=== PATIENT | male | born 1950 | race Caucasian/White ===

== ENCOUNTER 2017-08-08 07:30 | Day surgery (SDC) | payer MEDICARE, OTHER ==
[~2017-08-08] VITALS: Ht 182.9 cm; Wt 88.5 kg
[~2017-08-08 07:30] MED LIST: ALPR PO; ATEN50TA PO; ETAN50IN SC; FENO5TAB PO; IBUP800T24 PO; OLME40TA30 PO; OMEP20TA PO; OXYC325T14 PO; PRE5T PO; SERT-135 PO
[2017-08-08] MEDS ORDERED: IODIXANOL 320MG/ML 100ML BTL IV ONE (09:02)
[2017-08-08] MEDS ORDERED: LIDOCAINE 2%HCL (LOCAL ANESTH.) INJ 20ML MDV ONE (09:02)
[2017-08-08] MEDS ORDERED: HEPARIN IN NS 1000Units/500mL 1,500 ML ONE (09:03)
[2017-08-08] MEDS ORDERED: MIDAZOLAM HCL 1MG/1ML-2 ML VIAL ONE (09:16)
[2017-08-08] MEDS ORDERED: ONDANSETRON HCL 4 MG/2 ML VIAL ONE (09:16)
[2017-08-08] MEDS ORDERED: fentaNYL CITRATE 100 MCG/2 ML VL ONE (09:16)
[2017-08-08] MEDS ORDERED: ANGIOMAX 250 MG VIAL IV ONE (09:16)
[2017-08-08] MEDS ORDERED: SODIUM CHL 0.9% 0 ML ONE (09:16)
[2017-08-08] MEDS ORDERED: hydrALAZINE HCL 20 MG/ML VL IV ONE ×2 (10:45→13:15)
[2017-08-08] MEDS ORDERED: hydrALAZINE HCL 20 MG/ML VL ONE (13:06)
== END 2017-08-08 14:05 | disposition home or self-care (01) ==
LOC: CATH 07:30
PROVIDERS: ATTEND Internal Medicine
DX: I49.8 Other specified cardiac arrhythmias (principal); R94.39 Abnormal result of other cardiovascular function study; E66.9 Obesity, unspecified; F17.210 Nicotine dependence, cigarettes, uncomplicated; I99.8 Other disorder of circulatory system; M06.9 Rheumatoid arthritis, unspecified; Z79.899 Other long term (current) drug therapy; Z79.01 Long term (current) use of anticoagulants; Z79.1 Long term (current) use of non-steroidal anti-inflammatories (NSAID); Z79.891 Long term (current) use of opiate analgesic
CPT/HCPCS: 93458; C1894; J0360; J1644; J2250; J2405; J3010; J7030; Q9967; 99152

== ENCOUNTER 2018-07-26 17:26 | Inpatient (IN) | payer OTHER ==
[~2018-07-26] VITALS: Ht 167.6 cm; Wt 104.1 kg
[~2018-07-26 17:26] MED LIST changes: -ALPR PO; +ALPR0.255 PO
[2018-07-26] MEDS ORDERED: MIDAZOLAM HCL 5 MG/ML-1ML VIAL ONE (17:37)
[2018-07-26] MEDS ORDERED: PROPOFOL 100 ML IV ONE (17:39)
[2018-07-26] MEDS: PROPOFOL 100 ML IV SCH (17:42)
[2018-07-26] MEDS ORDERED: NOREPINEPHRINE 8 MG/250ML KIT 250 ML IV ONE (17:57)
[2018-07-26 18:05] LABS: Eosinophils # (auto) 0 uL; Hemoglobin 13.5 g/dL (13.5-17.5); Lymphocytes # (auto) 1.3 uL
[2018-07-26 18:06] LABS: Basophils # (auto) 0 uL; Basophils % (auto) 0.1 % (0.0-2.0); Eosinophils % (auto) 0.1 % (0.0-7.0); Lymphocytes % (auto) 8.2 % (10.0-50.0); Monocytes # (auto) 1.4 uL; Monocytes % (auto) 8.8 % (0.0-12.0); Neutrophils % (auto) 82.8 % (37.0-80.0); Platelet Count (auto) 283 10^3/uL (140-450); Red Blood Cells 5.63 10^6/uL (4.5-5.90); Red Cell Distribution Width 18.5 % (11.8-14.3); White Blood Cell 15.7 10^3/uL (4.4-10.8)
[2018-07-26] MEDS: NOREPINEPHRINE 8 MG/250ML KIT 250 ML IV SCH (18:12)
[2018-07-26 18:14] LABS: Chloride 119 mmol/L (98-107); Potassium 3.2 mmol/L (3.5-5.1); Sodium 147 mmol/L (136-145)
[2018-07-26 18:17] LABS: Albumin 1.7 g/dL (3.4-5.0); Anion Gap 14 (5-15); Carbon Dioxide 14 mmol/L (21-32); Glucose 81 mg/dL (74-106); Magnesium 1.5 mg/dL (1.6-2.6)
[2018-07-26 18:21] LABS: Alanine Aminotransferase 155 U/L (16-61); Aspartate Aminotransferase 40 U/L (15-37); BUN/Creatinine Ratio 38.1; Bilirubin, Total 0.6 mg/dL (0.2-1.0); GFR African American 32 mL/min; GFR Non-African American 26 mL/min; Total Protein 3.7 g/dL (6.4-8.2)
[2018-07-26 18:23] LABS: Alkaline Phosphatase 87 U/L (45-117)
[2018-07-26] MEDS ORDERED: MIDAZOLAM HCL 5 MG/ML-1ML VIAL IV ONE (18:30)
[2018-07-26 18:42] LABS: INR 1.39 (0.9-1.15); Prothrombin Time 14.6 sec (9.27-12.13)
[2018-07-26] MEDS ORDERED: SODIUM CHLORIDE 0.9% 1,000 ML IV ONE (18:45)
[2018-07-26] MEDS ORDERED: DOPamine 1600MCG/ML D5W 250 ML IV ONE (18:45)
--- NOTE | 2018-07-26 19:25 | NUR ---
Respiratory note: INCREASED VT TO 600 PER MD ORDER AT THIS TIME
[2018-07-26] MEDS ORDERED: CALCIUM GLUC 4.65meq/50ml D5AE 50 ML IV ONE ×2 (19:30→23:00)
[2018-07-26 19:31] LABS: Blood Urea Nitrogen 99 mg/dL (7-18); Calcium < 5.0 mg/dL (8.5-10.1)
[2018-07-26 19:53] VITALS: BP 106/58
--- NOTE | 2018-07-26 20:15 | NUR ---
Respiratory note: TOOK PT TO CT AND RETURNED AT THIS TIME, NO COMPLICATIONS, PLACED PT BACK ON VENT AT THIS TIME WITH THE ORIGINAL SETTINGS AC 14 VT 600 PEEP 5 FOP2 IS 100%
[2018-07-26] MEDS: MIDAZOLAM DRIP 50 mg/50mL 50 ML IV SCH (20:40)
[2018-07-26 21:00] VITALS: BP 106/58
[2018-07-26] MEDS ORDERED: SODIUM CHLORIDE 0.9% 1,000 ML IV SCH (21:37)
[2018-07-26] MEDS ORDERED: VANCOMYCIN PER PHARMACY 0 MG IV SCH (21:45)
[2018-07-26] MEDS ORDERED: ONDANSETRON HCL 4 MG/2 ML VIAL IV PRN (21:45)
[2018-07-26] MEDS ORDERED: MORPHINE SULF INJ 2 MG/ML SYRINGE 1ML IV PRN (21:45)
[2018-07-26] MEDS ORDERED: NITROGLYCERIN 0.4 MG SL TAB SL PRN (21:45)
[2018-07-26] MEDS ORDERED: ACETAMINOPHEN 325 MG TAB PO PRN (21:45)
[2018-07-26] MEDS ORDERED: POTASSIUM CHL 20MEQ/100ML 100 ML IV ONE (21:45)
--- NOTE | 2018-07-26 21:47 | NUR ---
Respiratory note: INCREASED RR TO 16, INCREASED PF TO 65LPM AT THIS TIME
[2018-07-26] MEDS ORDERED: SODIUM BICARBONATE 8.4 % INJ 50ML VIAL IV ONE (22:00)
[2018-07-26 22:02] VITALS: BP 136/88
[2018-07-26] MEDS ORDERED: VANCOMYCIN 1GM/250ML 250 ML IV ONE (22:15)
--- NOTE | 2018-07-26 23:23 | NUR ---
Admit to ICU from ER on vent LYNN,NATALIE Granado admitted to ICU via gurney on manager monitoring, intubated and being bagged by Respiratory Therapist. Patient transferred to bed, connected to mechanical ventilator by therapist, SYLVIA at bedside. Patient connected to ICU monitoring, weighed by bed scale, oriented to Olivia pena RN, unit, ventilator and sedation. NOTE: Family at ICU waiting area
[2018-07-26 23:30] VITALS: BP 83/58
[2018-07-26 23:45] VITALS: BP 105/76
[2018-07-27] VITALS (95 sets, daily range): BP systolic 76–127; BP diastolic 40–86
[2018-07-27] MEDS ORDERED: PIPERACILLIN-TAZOB 3.375GM 100 ML IV SCH
--- NOTE | 2018-07-27 00:05 | NUR ---
FAMILY AT BEDSIDE TALKED TO PATIENT'S AND SON INFORMED THEM OF PATIENT'S CONDITION, UNIT'S POLICIES VERBALIZED UNDERSTANDING
--- NOTE | 2018-07-27 00:30 | NUR ---
SKIN PATIENT HAS MULTIPLE SKIN TEARS,ABRASIONS ACCORDING TO THE PATIENT FELL AND HIS SKIN IS PAPERY THIN AND EASILY GETS BRUISES BOTH LEGS - HYPERPIGMENTED AND SWOLLEN
[2018-07-27] MEDS ORDERED: DOPamine 1600MCG/ML D5W 250 ML IV ONE (00:58)
[2018-07-27] MEDS: NOREPINEPHRINE 8 MG/250ML KIT 250 ML IV SCH ×3 (01:09→22:33)
[2018-07-27] MEDS: MIDAZOLAM DRIP 50 mg/50mL 50 ML IV SCH ×4 (01:27→18:24)
--- NOTE | 2018-07-27 01:49 | NUR ---
VANCOMYCIN VANCOMYCIN WAS GIVEN LATE AT 0114HRS WILL CANCEL VANCOMYCIN RANDOM LEVEL DRAW AT 0400HRS BECAUSE ITS TOO CLOSE WILL CALL PHARMACY LATER TO RE-TIMED THE DRAW
[2018-07-27] MEDS: DOPamine 1600MCG/ML D5W 250 ML IV SCH ×4 (02:14→16:39)
[2018-07-27] MEDS: PIPERACILLIN-TAZOB 2.25GM 50 ML IV SCH ×2 (02:29→07:34)
[2018-07-27] MEDS ORDERED: SODIUM BICARBONATE 50ML VIAL 50 ML in SOD CHL 0.45% 1,000 ML IV SCH (02:30)
--- NOTE | 2018-07-27 02:30 | NUR ---
HOSPITALIST CALLED BACK TALKED TO MARSHAL MORGAN TO FOLLOW UP THE ORDER FOR SODIUM BICARBONATE DRIP TELEPHONE ORDER RECEIVED AND VERIFIED: IV 1/2 NS + 1 AMP OF SODIUM BICARBONATE AT 75ML/HR AND DO ABG AFTER 2HOURS OF DRIP WAS STARTED
[2018-07-27] MEDS ORDERED: SODIUM BICARBONATE 8.4% INJ 50ML SYRINGE ONE (03:15)
[2018-07-27] MEDS ORDERED: ATEN50TA PO ×2 (03:42)
[2018-07-27] MEDS ORDERED: PRE5T PO (03:54)
[2018-07-27] MEDS ORDERED: TRAZ-220 PO (04:04)
[2018-07-27] MEDS ORDERED: DOCU100T15 PO (04:04)
[2018-07-27] MEDS ORDERED: ALBU1AER4 IN (04:04)
[2018-07-27] MEDS ORDERED: MENA1CAP PO (04:04)
[2018-07-27] MEDS ORDERED: TRAM50TA2 PO (04:04)
[2018-07-27] MEDS ORDERED: ASPI81TA27 PO (04:04)
--- NOTE | 2018-07-27 05:55 | NUR ---
HYGIENE SPONGE BATH DONE ORAL CARE DONE
[2018-07-27 06:18] LABS: Basophils # (auto) 0.1 uL; Basophils % (auto) 0.3 % (0.0-2.0); Eosinophils # (auto) 0 uL; Eosinophils % (auto) 0.2 % (0.0-7.0); Hematocrit 41.7 % (41.0-53.0); Hemoglobin 13.4 g/dL (13.5-17.5); Lymphocytes # (auto) 0.5 uL; Lymphocytes % (auto) 2.3 % (10.0-50.0); Mean Corpuscular Hemoglobin 24.7 pg (28.0-32.0); Mean Corpuscular Volume 77.1 fL (80.0-100.0); Monocytes % (auto) 4.8 % (0.0-12.0); Neutrophils # (auto) 18.6 uL; Neutrophils % (auto) 92.4 % (37.0-80.0); Nucleated Red Blood Cells % 2.1 %; Platelet Count (auto) 257 10^3/uL (140-450); Red Blood Cells 5.41 10^6/uL (4.5-5.90); Red Cell Distribution Width 18.5 % (11.8-14.3); White Blood Cell 20.1 10^3/uL (4.4-10.8)
--- NOTE | 2018-07-27 06:21 | NUR ---
Admit to ICU from ER on vent NATALIE BAILEY admitted to ICU via [place] on secured entrance monitor, intubated and being bagged by Respiratory Therapist. Patient transferred to bed, connected to mechanical ventilator by therapist, SYLVIA at bedside. Patient connected to ICU monitoring, weighed by bed scale, oriented to Olivia pena RN, unit, ventilator and sedation. NOTE: Family at ICU waiting area Addendum: 07/27/18 at 0624 by Olivia Marrero RN WRONG ENTRY ENTRY FOR 2323HRS 07/26
[2018-07-27 06:37] LABS: Potassium 4.8 mmol/L (3.5-5.1)
--- NOTE | 2018-07-27 06:44 | NUR ---
CALLED PHARMACY INFORMED PHARMACIST ON DUTY THAT VANCOMYCIN RANDOM DUE AT 0400HRS NOT DONE BECAUSE SARA VANCOMYCIN DOSE WAS GIVEN LATE. SHE NOTED SHE WILL PUT IN THE ORDER FOR VANCOMYCIN DRAW
[2018-07-27 06:52] LABS: Albumin 2.8 g/dL (3.4-5.0); BUN/Creatinine Ratio 34.8; Bilirubin, Total 1.5 mg/dL (0.2-1.0); Total Protein 6.3 g/dL (6.4-8.2)
[2018-07-27 06:55] LABS: Calcium 5.4 mg/dL (8.5-10.1)
--- NOTE | 2018-07-27 07:00 | NUR ---
REPORT RECEIVED FROM SUPERVISOR COKE HANDLING NURSE. PATIENT RESTING IN BED AT THIS TIME, INTUBATED AND SEDATED. RESPIRATIONS EVEN AND UNLABORED. NO SIGNS OF ACUTE DISTRESS NOTED. CALL LIGHT IN REACH, BED IN LOW POSITION. WILL CONTINUE TO MONITOR.
--- NOTE | 2018-07-27 07:10 | NUR ---
REPORT REPORT GIVEN TO REAL VALERIO
[2018-07-27] MEDS ORDERED: CALCIUM GLUC 4.65meq/50ml D5AE 50 ML IV ONE ×4 (07:30→22:15)
[2018-07-27] MEDS ORDERED: SODIUM BICARBONATE 8.4 % INJ 50ML VIAL IV ONE (07:30)
--- NOTE | 2018-07-27 07:32 | NUR ---
HOSPITALIST CALLED BACK INFORMED WAITER/WAITRESS CAFETERIA MORGAN OF ABG AND LAB RESULTS TELEPHONE ORDER RECEIVED AND VERIFIED
--- NOTE | 2018-07-27 08:00 | NUR ---
UPON ASSESSMENT UNABLE TO AUSCULTATE NGT. GARGLING HEARD UPON AUSCULTATION. AWAITING CXR RESULTS TO CONFIRM.
[2018-07-27] MEDS: ASPirin 81 mg TAB PO SCH (09:37)
[2018-07-27] MEDS ORDERED: PANTOPRAZOLE 40 MG/10 ML VIAL IV SCH (10:00)
--- NOTE | 2018-07-27 10:00 | NUR ---
REPLACED RIGHT NGT WITH 16F OGT. CXR STATED NGT IN PLACE, BUT STILL UNABLE TO AUSCULTATE AND GARGLING NOTED COMING FROM MOUTH, DOUBLE NURSE VERIFIED. INSERTED WITHOUT DIFFICULTY. VERIFIED WITH AUSCULTATION.
[2018-07-27] MEDS ORDERED: EPINEPHrine HCL 1 MG/10 ML SYRG IV ONE (10:09)
[2018-07-27] MEDS ORDERED: DOPamine 1600mCg/ml 400MG/250ml NSorD5 KIT/BAG IV ONE (10:09)
[2018-07-27] MEDS ORDERED: ATROPINE SULF 1 MG/10ml SYR IV ONE (10:09)
--- NOTE | 2018-07-27 10:15 | NUR ---
DR ESQUEDA AT BEDSIDE TO ASSESS PATIENT AND DISCUSS PLAN OF CARE. PER MD HAVE DIALYSIS CATHETER PLACED AND START DIALYSIS TODAY. EVERYTHING DISCUSSED WITH SON AT BEDSIDE.
[2018-07-27] MEDS ORDERED: LINEZOLID 600MG/300ML 300 ML IV ONE (10:30)
--- NOTE | 2018-07-27 10:30 | NUR ---
MD CALLED AND WAITING FOR MD TO CALL BACK REGARDING CRITICAL ABG RESULTS
--- NOTE | 2018-07-27 10:41 | NUR ---
PAGED DR CHAUDHARI TO CLARIFY CONSULTATION MD PREFERRED PER INSURANCE. AWAITING CALL BACK.
--- NOTE | 2018-07-27 10:50 | NUR ---
SPOKE TO DR CHAUDHARI, PER MD PATIENT TO BE SEEN BY DR HAY FOR CARDIO AND DR PHIPPS FOR PULMONARY.
--- NOTE | 2018-07-27 11:10 | NUR ---
DR CHAUDHARI SPOKE TO DR MCCALL AND PATIENT WILL BE SEEN TODAY BE EITHER HIMSELF OR DR FERNANDES.
--- NOTE | 2018-07-27 11:39 | NUR ---
DR CHAUDHARI AT BEDSIDE TO ASSESS PATIENT AND DISCUSS PLAN OF CARE. PER MD START PATIENT ON NYSTATIN. PER MD CHANGE BICARB DRIP TO DEXTROSE 5%WITH 2 AMPS OF BICARB AT 125ML/HR. ALL ORDERS NOTED IN CHART.
[2018-07-27 13:18] LABS: Potassium 4.2 mmol/L (3.5-5.1)
[2018-07-27 13:24] LABS: Albumin 2.7 g/dL (3.4-5.0)
[2018-07-27 13:27] LABS: BUN/Creatinine Ratio 37.7
[2018-07-27 13:30] LABS: Bilirubin, Total 1.6 mg/dL (0.2-1.0); Total Protein 6.5 g/dL (6.4-8.2)
[2018-07-27 13:47] LABS: Calcium 5.8 mg/dL (8.5-10.1)
[2018-07-27] MEDS: MEROPENEM 500MG IVPB 50 ML IV SCH (13:50)
--- NOTE | 2018-07-27 14:00 | NUR ---
WOUND CARE NURSE AT BEDSIDE TO ASSESS PATIENT.
--- NOTE | 2018-07-27 14:00 | NUR ---
WOUND CARE NOTE: IN TO SEE PATIENT AT THIS TIME PER WOUND CARE CONSULT REQUEST. PATIENT NOTED UPON ADMIT TO HAVE MULTIPLE WOUNDS. ALL WOUNDS PHOTOGRAPHED AT THAT TIME BY BEDSIDE NURSE FOR REFERENCE. PATIENT ADMITTED TO [facility] WITH DIAGNOSIS OF CARDIOPULMONARY ARREST. PATIENT CURRENTLY IN ICU. HE IS INTUBATED, SEDATED, ON MULTIPLE DRIPS. PATIENT CAME IN WITH A STAGE 3 PRESSURE ULCER TO THE LEFT BUTTOCK, MULTIPLE ABRASIONS/SKIN TEARS AND ECCHYMOTIC WOUNDS TO LIMBS/TRUNK. ALL WOUND STATS CAN BE FOUND WITHIN WOUND ASSESSMENT INTERVENTION LINKED WITH THIS NOTE. THERAHONEY AND OPTIFOAM GENTLE DRESSINGS APPLIED TO ALL OPEN WOUNDS. OPTIFOAM GENTLE SACRAL DRESSING APPLIED TO MEDIAL SACRUM. PATIENT WOULD BENEFIT FROM: FREQUENT TURN SCHEDULES Q 2 HOURS, PRN CONDITION PERMITS, WITH PRESSURE REDISTRIBUTION USING PILLOWS/WEDGES, SPECIALTY AIR BED, DAILY/PRN DRESSING CHANGE TO LEFT BUTTOCK WOUND, Q 3 DAY/PRN DRESSING CHANGE TO ALL SKIN TEARS/ABRASIONS THAT ARE OPEN; BID/PRN APPLICATION WITH MOISTURE BARRIER CREAM/OPTIFOAM GENTLE SACRAL DRESSING PREVENTATIVE, DIETARY CONSULT FOR WOUNDS, SKIN/WOUND CARE PLAN, CONTINUED MONITORING BY WOUND CARE TEAM. Addendum: 07/27/18 at 8 by Zahraa Montgomery RN Amended: Links added.
--- NOTE | 2018-07-27 14:20 | NUR ---
MEDICAL RECORDS COORDINATOR AT BEDSIDE
[2018-07-27] MEDS ORDERED: SODIUM BICARB 50ML SYR 100 ML in D5W 5% 1,000 ML IV ONE (14:45)
--- NOTE | 2018-07-27 14:45 | NUR ---
DR CALDWELL AT BEDSIDE TO PLACE DIALYSIS CATHETER.
[2018-07-27] MEDS ORDERED: HEPARIN SODIUM (PORCINE) 5000 UNITS/ML 1ML VIAL ONE (15:06)
[2018-07-27] MEDS ORDERED: HEPARIN 1,000 UNITS/ml 1ML VIAL ONE ×2 (15:10→16:47)
--- NOTE | 2018-07-27 16:25 | NUR ---
DIALYSIS NURSE AT BEDSIDE. TO START DIALYSIS.
[2018-07-27] MEDS: PROPOFOL 100 ML IV SCH (16:39)
--- NOTE | 2018-07-27 16:55 | NUR ---
DR FERNANDES AT BEDSIDE TO ASSESS PATIENT AND DISCUSS PLAN OF CARE. PER MD YEMI CHOUDHURY.
--- NOTE | 2018-07-27 16:55 | NUR ---
RHYTHM CHANGE DR FERNANDES AT BEDSIDE WELL DIALYSIS NURSE, AND PRIMARY NURSE WHEN PATIENT WENT INTO A FIB RVR IN THE 170'S. EKG WAS PERFORMED. PAGED DR MONAHAN AND DR CHAUDHARI. 1703 [address] CHAUDHARI CALLED BACK AND STARTED PATIENT ON AMIODARONE DRIP PER PROTOCOL AND HEPARIN DRIP PER PROTOCOL.
[2018-07-27] MEDS: VASOPRESSIN 50 UNITS in D5W 5% 247.5 ML IV SCH ×2 (17:15→19:52)
[2018-07-27] MEDS ORDERED: AMIODARONE HCL 150 MG in D5W 5% 100 ML IV ONE (17:15)
[2018-07-27] MEDS ORDERED: CATHFLO ACTIVASE (ALTEPLASE) 2 MG VIAL IV ONE (17:15)
[2018-07-27] MEDS ORDERED: AMIODARONE HCL 900 MG in DEXTROSE 500 ML IV SCH (17:16)
[2018-07-27] MEDS ORDERED: HEPARIN SODIUM (PORCINE) 5000 UNITS/ML 1ML VIAL IV ONE (17:45)
[2018-07-27] MEDS ORDERED: HEPARIN DRIP/D5W 100UNITS/ML 250 ML IV SCH (17:46)
[2018-07-27 17:49] LABS: Hemoglobin 14.3 g/dL (13.5-17.5); Monocytes # (auto) 0.8 uL
[2018-07-27 17:50] LABS: Basophils # (auto) 0.3 uL; Basophils % (auto) 1.1 % (0.0-2.0); Eosinophils # (auto) 0 uL; Eosinophils % (auto) 0.2 % (0.0-7.0); Hematocrit 45.7 % (41.0-53.0); INR 1.37 (0.9-1.15); Lymphocytes # (auto) 0.9 uL; Lymphocytes % (auto) 3.8 % (10.0-50.0); Mean Corpuscular Hemoglobin 24.1 pg (28.0-32.0); Mean Corpuscular Hgb Conc. 31.3 g/dL (32.0-36.0); Monocytes % (auto) 3.4 % (0.0-12.0); Neutrophils # (auto) 21.8 uL; Neutrophils % (auto) 91.5 % (37.0-80.0); Nucleated Red Blood Cells % 1.7 %; Partial Thromboplastin Time 36.3 sec (23.78-33.04); Platelet Count (auto) 238 10^3/uL (140-450); Prothrombin Time 14.4 sec (9.27-12.13); Red Blood Cells 5.93 10^6/uL (4.5-5.90); Red Cell Distribution Width 18.6 % (11.8-14.3); White Blood Cell 23.8 10^3/uL (4.4-10.8)
[2018-07-27 18:56] LABS: Creatinine, Urine 60 mg/dL (30.0-125.0); Sodium Urine 19 mmol/L (40-220)
[2018-07-27 19:05] LABS: Urine Bacteria NONE SEEN /hpf (None Seen); Urine Blood 1+ /uL (Negative); Urine Specific Gravity 1.014 (1.001-1.035); Urine WBC 7 /hpf (0 - 3)
--- NOTE | 2018-07-27 20:00 | NUR ---
repositioning repositioning not done, patient's bp is low started on IV Vasopressin
[2018-07-27 20:04] LABS: Potassium 3.9 mmol/L (3.5-5.1)
[2018-07-27 20:10] LABS: BUN/Creatinine Ratio 36.7
--- NOTE | 2018-07-27 20:23 | NUR ---
RHYTHM CONVERTED TO SR WITH PACs HR 70-90/MIN BP REMAINED LOW SBP 80 INCREASED IV VASOPRESSIN
[2018-07-27 20:28] LABS: Calcium 5.6 mg/dL (8.5-10.1)
--- NOTE | 2018-07-27 20:30 | NUR ---
CALLED [facility] TORIE [facility] TO INFORM OF LAB RESULTS UNABLE TO CONNECT PBX GAVE ME THE NUMBER [phone] TRIED SEVERAL TIMES BUT UNABLE TO GET THROUGH
--- NOTE | 2018-07-27 20:45 | NUR ---
TORIE CHAUDHARI. PAGING SERVICE DIRECTED ME TO DR. TRAVIS. TALKED TO DR. TRAVIS REGARDING LAB RESULTS HE SAID TO CALL [facility]
--- NOTE | 2018-07-27 20:54 | NUR ---
TRIED CALLING DR. ESQUEDA OVER THE PHONE GOES TO VOICEMAIL BUT UNABLE TO LEAVE A MESSAGE BECAUSE IT WAS FULL SARAH WAGNER
--- NOTE | 2018-07-27 21:14 | NUR ---
MD CALLED BACK TALKED TO DR. ESQUEDA OVER THE PHONE INFORMED OF LAB RESULTS TELEPHONE ORDER RECEIVED AND VERIFIED: 1. 2 GM CALCIUM GLUC 2. SWITCH IVF TO NS AT 100ML/HR NOTED OF ABG RESULTS 3. DO A REPEAT ABG AT 12MN AND CALL HIM ON HIS PHONE
[2018-07-27] MEDS: SODIUM CHLORIDE 0.9% 1,000 ML IV SCH (21:29)
--- NOTE | 2018-07-27 21:30 | NUR ---
FAMILY WENT HOME UPDATED PATIENT'S DAUGHTER AND BEFORE GOING HOME
--- NOTE | 2018-07-27 22:13 | NUR ---
Repositioning repositioning not done, patient's bp remained low, will check after 1hr
[2018-07-27] MEDS: NYSTATIN (MOUTH-THROAT) 500,000 UNITS/5 ML SUSP MT SCH (22:17)
--- NOTE | 2018-07-27 22:26 | NUR ---
RHYTHM/BP RE-ASSESS ECG GOES IN AND OUT OF AFIB AND SINUS TACHYCARDIA HR GOES FROM 110-140/MIN IV AMIODARONE AT 1 MG/MIN IV VASOPRESSIN AT 0.04 UNITS/HR TO KEEP SBP >90 MMHG
[2018-07-27] MEDS: LINEZOLID 600MG/300ML 300 ML IV SCH (23:11)
[2018-07-27] MEDS: AMIODARONE HCL 900 MG in DEXTROSE 500 ML IV SCH (23:36)
--- NOTE | 2018-07-27 23:36 | NUR ---
AMIODARONE IV AMIODARONE DECREASED TO 0.5 MG/MIN PER PROTOCOL
--- NOTE | 2018-07-27 23:44 | NUR ---
CALLED NEPHRO CALLED DR. ESQUEDA AND INFORMED OF ABG RESULTS NO NEW ORDERS AT THIS TIME
[2018-07-28] VITALS (105 sets, daily range): BP systolic 70–146; BP diastolic 33–101
--- NOTE | 2018-07-28 00:40 | NUR ---
TRANSFERRED TO SPECIALTY BED
[2018-07-28] MEDS: MIDAZOLAM DRIP 50 mg/50mL 50 ML IV SCH ×4 (00:43→20:11)
--- NOTE | 2018-07-28 01:00 | NUR ---
BM/MELENA PATIENT HAD BM MODERATE AMOUNT LOOSE DARK STOOL (MELENA) STOOL COLLECTED PATIENT CLEANED AWAITING PT/PTT RESULTS THEN WILL PAGED MD
[2018-07-28 01:04] LABS: INR 1.46 (0.9-1.15); Prothrombin Time 15.3 sec (9.27-12.13)
[2018-07-28 01:11] LABS: Partial Thromboplastin Time 73.5 sec (23.78-33.04)
--- NOTE | 2018-07-28 01:15 | NUR ---
TORIE THEODORE TALKED TO DR. TRAVIS INFORMED OF PATIENT'S STOOL AND NGT ASPIRATE COFFEE GROUND INFORMED OF LATEST PTT RESULTS - PATIENT ON HEPARIN DRIP TELEPHONE ORDER RECEIVED AND VERIFIED: 1. DISCONTINUE HEPARIN 2. STAT CBC 3. START PROTONIX DRIP 4. GI CONSULT TO CALL HIM BACK FOR CBC RESULTS
[2018-07-28] MEDS ORDERED: PANTOPRAZOLE 40 MG/10 ML VIAL IV ONE (01:40)
[2018-07-28 01:57] LABS: Eosinophils # (auto) 0 uL; Eosinophils % (auto) 0.2 % (0.0-7.0); Mean Corpuscular Hemoglobin 24.4 pg (28.0-32.0); Monocytes # (auto) 1.4 uL; Monocytes % (auto) 5.9 % (0.0-12.0); Red Cell Distribution Width 18.2 % (11.8-14.3)
[2018-07-28] MEDS: MEROPENEM 500MG IVPB 50 ML IV SCH (01:57)
[2018-07-28] MEDS: PANTOPRAZOLE 80 MG in SODIUM CHL 0.9% 60 ML IV SCH ×3 (01:58→20:09)
[2018-07-28 01:59] LABS: Basophils # (auto) 0 uL; Basophils % (auto) 0.1 % (0.0-2.0); Hematocrit 41.4 % (41.0-53.0); Hemoglobin 13.2 g/dL (13.5-17.5); Lymphocytes # (auto) 0.3 uL; Lymphocytes % (auto) 1.4 % (10.0-50.0); Neutrophils # (auto) 21.3 uL; Neutrophils % (auto) 92.4 % (37.0-80.0); Nucleated Red Blood Cells % 1.4 %; Platelet Count (auto) 201 10^3/uL (140-450); Red Blood Cells 5.44 10^6/uL (4.5-5.90); White Blood Cell 23.1 10^3/uL (4.4-10.8)
--- NOTE | 2018-07-28 02:15 | NUR ---
CALLED MD INFORMED DR. TRAVIS OF CBC RESULTS TELEPHONE ORDER: STOOL OCCULT BLOOD
[2018-07-28] MEDS: NOREPINEPHRINE 8 MG/250ML KIT 250 ML IV SCH ×4 (03:13→21:23)
--- NOTE | 2018-07-28 05:30 | NUR ---
HYGIENE PATIENT CLEANED WITH CHG WIPES. PARTIAL LINEN CHANGED PATIENT HAD BM MODERATE AMOUNT OF DARK BLACKISH STOOL OPTIFOAM AT LEFT BUTTOCKS CHANGED
[2018-07-28] MEDS: NYSTATIN (MOUTH-THROAT) 500,000 UNITS/5 ML SUSP MT SCH ×4 (06:33→21:20)
--- NOTE | 2018-07-28 07:00 | NUR ---
REPORT RECEIVED FROM VEGETABLE GRADER NURSE. PATIENT RESTING IN BED AT THIS TIME. RESPIRATIONS EVEN AND UNLABORED, INTUBATED AND SEDATED. NO SIGNS OF ACUTE DISTRESS NOTED. SPECIALTY MATTRESS IN LOW POSITION. WILL CONTINUE TO MONITOR.
[2018-07-28] MEDS: SODIUM CHLORIDE 0.9% 1,000 ML IV SCH ×2 (07:34→17:15)
[2018-07-28 07:40] LABS: Basophils # (auto) 0 uL; Eosinophils # (auto) 0 uL; INR 1.37 (0.9-1.15); Lymphocytes # (auto) 0.5 uL; Partial Thromboplastin Time 39.9 sec (23.78-33.04); Prothrombin Time 14.4 sec (9.27-12.13)
[2018-07-28 07:41] LABS: Eosinophils % (auto) 0.1 % (0.0-7.0); Hematocrit 39.3 % (41.0-53.0); Hemoglobin 12.7 g/dL (13.5-17.5); Lymphocytes % (auto) 2.2 % (10.0-50.0); Mean Corpuscular Hemoglobin 24.6 pg (28.0-32.0); Mean Corpuscular Hgb Conc. 32.4 g/dL (32.0-36.0); Monocytes # (auto) 1.5 uL; Neutrophils % (auto) 90.7 % (37.0-80.0); Nucleated Red Blood Cells % 0.9 %; Platelet Count (auto) 192 10^3/uL (140-450); Red Blood Cells 5.17 10^6/uL (4.5-5.90); Red Cell Distribution Width 18.4 % (11.8-14.3)
[2018-07-28 07:42] LABS: Potassium 3.3 mmol/L (3.5-5.1)
[2018-07-28 07:54] LABS: Albumin 2.3 g/dL (3.4-5.0); BUN/Creatinine Ratio 40.9; Bilirubin, Total 2.5 mg/dL (0.2-1.0); Phosphorus 7.2 mg/dL (2.5-4.90); Total Protein 5.5 g/dL (6.4-8.2); Uric Acid 16.3 mg/dL (3.5-7.2)
[2018-07-28 08:01] LABS: Calcium 5.4 mg/dL (8.5-10.1)
[2018-07-28] MEDS: DOPamine 1600MCG/ML D5W 250 ML IV SCH (08:12)
--- NOTE | 2018-07-28 08:40 | NUR ---
DR OSCAR AT BEDSIDE TO ASSESS PATIENT AND DISCUSS PLAN OF CARE. PER MD PATIENT TO HAVE DIALYSIS TODAY. MD AWARE OF ALL LAB RESULTS. Addendum: 07/28/18 at 1751 by Sarita Moss RN PER DR OSCAR MAY START PHENYLEPHRINE PER PROTOCOL IF NEEDED FOR BLOOD PRESSURE ON PATIENT.
[2018-07-28] MEDS ORDERED: PHENYLEPHRINE IV 250 ML IV ONE (09:51)
[2018-07-28] MEDS: ASPirin 81 mg TAB PO SCH ×2 (10:00→10:12)
[2018-07-28] MEDS: LINEZOLID 600MG/300ML 300 ML IV SCH ×2 (10:11→21:20)
--- NOTE | 2018-07-28 10:13 | NUR ---
DIALYSIS NURSE AT BEDSIDE AND DIALYSIS STARTED. PATIENT TOLERATING WELL. WILL CONTINUE TO MONITOR. 1018 PHENYLEPHRINE STARTED PER PROTOCOL DUE TO DECREASED BLOOD PRESSURE. WILL CONTINUE TO MONITOR.
[2018-07-28] MEDS: PHENYLEPHRINE INJ 20 MG in SODIUM CHL 0.9% 250 ML IV SCH (10:18)
--- NOTE | 2018-07-28 11:34 | NUR ---
NUTRITION CONSULT/ASSESSMENT NOTES Please refer to link notes of nutrition screen form filed under the intervention section of the plan of care for further details. Est. Needs: 1500 kcal to 2000 kcal (15-20 kcal/kgBW), 100 gms to 140 gms pro (1.0-1.4 gms/kgBW). Will continue to monitor pertinent labs and reassess nutrient need prn Thank you for this consult. Addendum: 07/28/18 at [address] Amended: Links added.
--- NOTE | 2018-07-28 11:48 | NUR ---
DR CHAUDHARI AT BEDSIDE TO ASSESS PATIENT AND DISCUSS PLAN OF CARE. PER MD SEND C DIFF. ALL ORDERS NOTED IN CHART. MD DISCUSSED PLAN OF CARE WITH FAMILY AT BEDSIDE. ALL QUESTIONS AND CONCERNS ADDRESSED.
--- NOTE | 2018-07-28 12:00 | NUR ---
DR FERNANDES AT BEDSIDE TO ASSESS PATIENT AND DISCUSS PLAN OF CARE. SPOKE TO FAMILY AT BEDSIDE AND ALL QUESTIONS AND CONCERNS ADDRESSED AT THIS TIME. PER MD ABG IN 1 HOUR AFTER DIALYSIS IS COMPLETED CALL WITH RESULTS.
[2018-07-28] MEDS: VASOPRESSIN 50 UNITS in D5W 5% 247.5 ML IV SCH (12:14)
[2018-07-28] MEDS ORDERED: CATHFLO ACTIVASE (ALTEPLASE) 2 MG VIAL IV ONE (12:15)
--- NOTE | 2018-07-28 13:12 | NUR ---
STOOL FORC DIFF SENT PER [facility]. PATIENT HAS HAD MORE THAN 3 LOOSE STOOLS IN 24 HOURS.
[2018-07-28] MEDS: PROPOFOL 100 ML IV SCH (13:23)
[2018-07-28] MEDS: metroNIDAZOLE 500MG/100ML 100 ML IV SCH ×3 (13:24→23:37)
[2018-07-28] MEDS: SEVELAMER 800 MG TAB PO SCH ×2 (14:00→21:20)
[2018-07-28] MEDS: LEVALBUTEROL HCL 1.25 MG/3 ML NEB NEB PRN (14:15)
[2018-07-28] MEDS: AMIODARONE HCL 900 MG in DEXTROSE 500 ML IV SCH (18:40)
--- NOTE | 2018-07-28 19:30 | NUR ---
Initial Assessment Patient received laying on bed on mechanical ventilation and sedation with no s/s of distress or pain noted. Versed being titrated for goal of -3 RASS. Pt on multiple vasopressors. ETT secured with Chiara, Ambu bag at bedside, oral care and suction rendered. HOB elevated to 30 degrees for VAP/aspiration precautions. RN verified proper placement of OGT via auscultation with air bolus and it is connected to LIS draining green bile. PERRL intact and sluggish. Rsubclavian central line intact and patent with no s/s of infiltration or phlebitis noted-dressing CDI. LIJ Cristofer catheter present with dressing CDI. PIV x2 intact and patent with no s/s of infiltration or phlebitis noted. Multiple skin issues noted with dressings CDI. Generalized edema noted-all extremities elevated to minimize swelling. Abd soft and non-distended with hypoactive bowel sounds. F/C intact and draining urine to gravity. Neurovascular status intact with palpable distal pulses and brisk capillary refill, skin cool to touch. BLE mottled. Bed in lowest position (on specialty bed), side rails up, bed brakes set, all alarms audible, in direct view of the nurses station. Continue close monitoring.
--- NOTE | 2018-07-28 20:00 | NUR ---
Cardiology consult Attempted to call Dr. French for cardio consult. His mailbox was full.
--- NOTE | 2018-07-28 21:00 | NUR ---
Elimination Patient had small/liquid/dark brown BM. Patient cleansed with mild soap and warm water, and linens changed.
--- NOTE | 2018-07-28 22:30 | NUR ---
Dialysis call pressed or blown glass worker called and states he will be here approximately 0800 tomorrow morning.
--- NOTE | 2018-07-28 22:45 | NUR ---
Family Multiple family members have been in to visit with patient. Status and POC explained to them. No concerns or complaints voiced from them at this time.
[2018-07-29] VITALS (104 sets, daily range): BP systolic 87–177; BP diastolic 47–103
--- NOTE | 2018-07-29 01:00 | NUR ---
Ongoing Assessment Propofol tubing was changed per 12 hour protocol. Patient continues to rest in bed with no s/s of distress or pain noted, being turned, all bony prominences and heels offloaded with pillows, skin is being kept clean and dry. Oral care and suction rendered frequently/PRN. HOB elevated. PIV sites and central line intact and patent with no s/s of infiltration or phlebitis noted. Versed continues to be titrated down for goal of -3 RASS. Vasopressin being titrated to keep MAP >65. Neurovacular status intact with palpable distal pulses x4 extremities. All VSS. Continue close monitoring.
--- NOTE | 2018-07-29 01:15 | NUR ---
Amiodarone put on hold Patient's HR decreased to 60-70's from the one-teens. Amiodarone placed on hold at this time for patient safety to prevent bradycardia. Will turn back on when HR increases.
--- NOTE | 2018-07-29 02:00 | NUR ---
Elimination Patient incontinent of small/liquid/dark brown BM. Patient cleansed with mild soap and warm water, and linens changed. Patient tolerated well with no s/s of pain or discomfort.
[2018-07-29] MEDS: PHENYLEPHRINE INJ 20 MG in SODIUM CHL 0.9% 250 ML IV SCH ×3 (02:29→19:09)
--- NOTE | 2018-07-29 03:00 | NUR ---
Patient bathe/linen change Patient given CHG bath barrier cream re-applied. Skin integrity assessed for any changes and none noted. Linens and gown changed. Patient repositioned for comfort. Patient tolerated well.
[2018-07-29] MEDS: SODIUM CHLORIDE 0.9% 1,000 ML IV SCH ×3 (03:49→23:15)
[2018-07-29 04:27] LABS: Hematocrit 36.5 % (41.0-53.0); Hemoglobin 11.9 g/dL (13.5-17.5); Mean Corpuscular Hemoglobin 24.5 pg (28.0-32.0); Mean Corpuscular Hgb Conc. 32.6 g/dL (32.0-36.0); Mean Corpuscular Volume 75.3 fL (80.0-100.0); Platelet Count (auto) 154 10^3/uL (140-450); Red Blood Cells 4.85 10^6/uL (4.5-5.90); White Blood Cell 22.2 10^3/uL (4.4-10.8)
[2018-07-29 04:37] LABS: Basophils % (manual) 0 (0.0-2.0); Blast Cells 0; Eosinophils % (manual) 0 (0-7); INR 1.28 (0.9-1.15); Metamyelocytes % 0; Myelocytes % 0; Partial Thromboplastin Time 39.5 sec (23.78-33.04); Promyelocytes % 0; Prothrombin Time 13.5 sec (9.27-12.13); Reactive Lymphocytes 0
--- NOTE | 2018-07-29 04:45 | NUR ---
Elimination Patient incontinent of another small/liquid/dark brown BM. Patient cleansed with mild soap and warm water, and linens changed. Patient tolerated well with no s/s of pain or discomfort.
[2018-07-29 04:56] LABS: BUN/Creatinine Ratio 41.3; Phosphorus 4.2 mg/dL (2.5-4.90)
[2018-07-29 05:00] LABS: Calcium 5.7 mg/dL (8.5-10.1); Potassium 2.4 mmol/L (3.5-5.1)
--- NOTE | 2018-07-29 05:00 | NUR ---
Dr. Beth paged Left msg with Dr. Beth's answering exchange re:critical labs. Waiting for call back.
[2018-07-29] MEDS: NYSTATIN (MOUTH-THROAT) 500,000 UNITS/5 ML SUSP MT SCH ×4 (05:13→21:34)
[2018-07-29] MEDS: metroNIDAZOLE 500MG/100ML 100 ML IV SCH ×4 (05:13→23:30)
[2018-07-29] MEDS: SEVELAMER 800 MG TAB PO SCH ×3 (05:13→21:34)
--- NOTE | 2018-07-29 05:30 | NUR ---
Dr. Beth paged Left 2nd msg with Dr. Beth's answering exchange re:critical labs. Waiting for call back.
--- NOTE | 2018-07-29 05:48 | NUR ---
Dr. Foster paged re: labs. Waiting for call back.
[2018-07-29] MEDS ORDERED: POTASSIUM CHL 20MEQ/100ML 100 ML IV ONE ×2 (06:15→06:16)
--- NOTE | 2018-07-29 06:15 | NUR ---
Dr. Beth called back He stated he reviewed all labs. He ordered: -administer 20meq Potassium IV x1 -have HD RN do HD with 4K bath and 3calcium. Will informed HD RN.
[2018-07-29 06:20] LABS: Band Neutrophils % (manual) 2; Lymphocytes % (manual) 4 (10.0-50.0); Monocytes % (manual) 8 (0-12)
[2018-07-29] MEDS ORDERED: SODIUM CHL 0.9% 1000 ML BAG XX ONE (07:00)
--- NOTE | 2018-07-29 07:06 | NUR ---
Report given No changes or incidents to report. No S/S of distress or pain. Care endorsed to day shift RN.
--- NOTE | 2018-07-29 08:45 | NUR ---
HYPOTENSION; Patient with hypotensive episode, dialysis in progress. Levophed increased to 28. Patient currently A-fib with RVR, amiodarone drip restarted at 0.5. Dr. Beth at bedside.
--- NOTE | 2018-07-29 09:00 | NUR ---
SEDATION VACATION: Patient not appropriate for sedation vacation at this time, will titrate down on Diprivan after completion of dialysis. Addendum: 07/29/18 at 0928 by Warren Villela RN Amended: Links added.
[2018-07-29] MEDS: ASPirin 81 mg TAB PO SCH (10:00)
[2018-07-29] MEDS: PANTOPRAZOLE 80 MG in SODIUM CHL 0.9% 60 ML IV SCH ×2 (11:04→17:15)
[2018-07-29] MEDS: NOREPINEPHRINE 8 MG/250ML KIT 250 ML IV SCH (11:05)
[2018-07-29] MEDS: LINEZOLID 600MG/300ML 300 ML IV SCH ×2 (12:28→21:34)
[2018-07-29] MEDS: DOPamine 1600MCG/ML D5W 250 ML IV SCH (13:17)
[2018-07-29 15:36] LABS: % Iron Saturation 56.7 % (20-55)
[2018-07-29 15:46] LABS: Calcium 6.7 mg/dL (8.5-10.1)
[2018-07-29 15:49] LABS: Potassium 2.7 mmol/L (3.5-5.1)
[2018-07-29] MEDS: POTASSIUM CHL 20MEQ/100ML 100 ML IV SCH ×3 (16:30→22:55)
[2018-07-29] MEDS: VASOPRESSIN 50 UNITS in D5W 5% 247.5 ML IV SCH (17:15)
[2018-07-29] MEDS: PROPOFOL 100 ML IV SCH ×2 (18:24→21:35)
[2018-07-29] MEDS: LEVALBUTEROL HCL 1.25 MG/3 ML NEB NEB PRN (18:36)
--- NOTE | 2018-07-29 19:30 | NUR ---
Initial Assessment Patient received laying on bed on mechanical ventilation and sedation with no s/s of distress or pain noted. ETT secured with Chiara, Ambu bag at bedside, oral care and suction rendered. HOB elevated to 30 degrees for VAP/aspiration precautions. RN verified proper placement of OGT via auscultation with air bolus and it is connected to LIS draining scant amount of green bile. PERRL intact and sluggish. Rsubclavian central line intact and patent with no s/s of infiltration or phlebitis noted-dressing CDI. LIJ Cristofer catheter present with dressing CDI. PIV to Rwrist intact and patent with no s/s of infiltration or phlebitis noted. RAC IV was D/C'd by day shift RN and pressure dressing removed. Multiple skin issues noted all with dressings. Generalized edema noted-all extremities elevated to minimize swelling. Abd soft and non-distended with hypoactive bowel sounds. F/C intact and draining urine to gravity. Neurovascular status intact with palpable distal pulses and brisk capillary refill, skin cool to touch. BLE mottled. Bed in lowest position (on specialty bed), side rails up, bed brakes set, all alarms audible, in direct view of the nurses station. Continue close monitoring.
[2018-07-29] MEDS ORDERED: Nepro With Carb Steady 1 Liter Bottle GT SCH (20:00)
--- NOTE | 2018-07-29 20:00 | NUR ---
Tube Feeding Initiated Order to initiate tube feeding. Abd soft and non-distended with hypoactive bowel sounds throughout. RN re-verified proper placement of NGT via auscultation with air bolus. tube feedings initiated per MD order through infusion pump at 10ml/hour. HOB elevated greater than 30 degrees.
[2018-07-29] MEDS: MIDAZOLAM DRIP 50 mg/50mL 50 ML IV SCH (20:21)
--- NOTE | 2018-07-29 20:30 | NUR ---
Wound photos Patient has two new skin issues, a scabbed erythematous abrasion to right lateral ankle and a non-blanchable erythematous/ecchymotic circular area to right lateral hip. Photos taken for reference at 1999 and wound care is following. Wounds cleansed and Optifoam gentle adhesive dressings applied to both sites.
[2018-07-29] MEDS ORDERED: EPOETIN ALFA 10,000 UNIT/1 ML VIAL SC ONE (21:00)
--- NOTE | 2018-07-29 22:33 | NUR ---
Dr. Beth paged re: Critical potassium. Waiting for call back.
[2018-07-29] MEDS ORDERED: POTASSIUM CHL 20MEQ/100ML 300 ML IV ONE (22:53)
[2018-07-29] MEDS ORDERED: POTASSIUM CHL 20MEQ/100ML 100 ML IV SCH (23:00)
[2018-07-30] VITALS (105 sets, daily range): BP systolic 81–145; BP diastolic 48–105
--- NOTE | 2018-07-30 00:46 | NUR ---
Ongoing Assessment Tube feeding residual re-checked and it is 5ml. Tube feedings increased to goal rate of 20ml/hour. Propofol tubing was changed per 12 hour protocol. Patient is tachycardic but per Dr. Rapp, not to treat with the Amiodarone bolus until HR sustaining greater than 160 and patient has not gotten that tachycardic on this shift. Patient continues to rest in bed with no s/s of distress or pain noted, being turned, all bony prominences and heels offloaded with pillows, skin is being kept clean and dry. Oral care and suction rendered frequently/PRN. HOB elevated. PIV sites and central line intact and patent with no s/s of infiltration or phlebitis noted. Versed continues to be titrated down for goal of -3 RASS. Vasopressin being titrated to keep MAP >65. Neurovacular status intact with palpable distal pulses x4 extremities. All VSS. Continue close monitoring Addendum: 07/30/18 at 0048 by Minerva Mitchell RN Vasopressin is off. levophed being titrated for goal of >65 MAP.
[2018-07-30] MEDS: POTASSIUM CHL 20MEQ/100ML 100 ML IV SCH ×6 (00:52→22:45)
--- NOTE | 2018-07-30 02:33 | NUR ---
Respiratory note: PT CHANGED OVER TO HEATED WIRE CIRCUIT, VENT SST'D AND PASSED. PT PLACED BACK ON PREVIOUS VENT SETTINGS, UNEVENTFUL. TOLERATED WELL. WILL CONTINUE TO MONITOR.
--- NOTE | 2018-07-30 03:00 | NUR ---
Wound care All wounds to extremities and buttocks cleansed with NS and pat dry. New Optifoam gentle adhesive dressings applied. Patient tolerated well.
[2018-07-30] MEDS: PHENYLEPHRINE INJ 20 MG in SODIUM CHL 0.9% 250 ML IV SCH ×3 (03:29→18:09)
--- NOTE | 2018-07-30 03:30 | NUR ---
Bowel movement Patient incontinent of large/liquid/dark green BM. Patient cleansed with mild soap and warm water. Linens changed.
[2018-07-30] MEDS: DOPamine 1600MCG/ML D5W 250 ML IV SCH ×2 (03:54→18:09)
--- NOTE | 2018-07-30 04:00 | NUR ---
Ongoing Assessment Tube feeding residual re-checked and it is 5ml. Tube feedings remains at goal rate of 20ml/hour. Pt having frequent bowel movements and being cleansed per protocol. No additional changes or incidents to report. Patient continues to rest in bed with no s/s of pain at this time but does have periods of agitation, does not track or follow commands, being turned, all bony prominences and heels offloaded with pillows, skin is being kept clean and dry. Oral care and suction rendered frequently/PRN. HOB elevated. Central line and PIV intact and patent with no s/s of infiltration or phlebitis noted. Neovascular status remains intact with palpable distal pulses, skin warm to touch. All extremities elevated for swelling. LUIS weeping-placed absorbant pad underneath arm to maintain skin integrity.
[2018-07-30] MEDS: PANTOPRAZOLE 80 MG in SODIUM CHL 0.9% 60 ML IV SCH (04:08)
[2018-07-30] MEDS: AMIODARONE HCL 900 MG in DEXTROSE 500 ML IV SCH ×2 (04:18→14:00)
--- NOTE | 2018-07-30 04:30 | NUR ---
Bowel movement Patient incontinent of another large/liquid/dark green BM. Patient cleansed with mild soap and warm water. Linens changed.
--- NOTE | 2018-07-30 05:00 | NUR ---
Patient bathe/linen change Patient given complete CHG bath, hair shampooed and combed through, skin moisturized, barrier cream re-applied. Skin integrity assessed for any changes and none noted. Linens and gown changed. Patient repositioned for comfort. Patient tolerated well.
[2018-07-30] MEDS: SEVELAMER 800 MG TAB PO SCH ×3 (06:00→21:22)
[2018-07-30 06:13] LABS: Basophils # (auto) 0 uL; Basophils % (auto) 0.1 % (0.0-2.0); Eosinophils # (auto) 0.2 uL; Eosinophils % (auto) 1.2 % (0.0-7.0); Monocytes # (auto) 1.6 uL
[2018-07-30 06:17] LABS: Hematocrit 34.5 % (41.0-53.0); Hemoglobin 11.2 g/dL (13.5-17.5); Lymphocytes # (auto) 0.7 uL; Lymphocytes % (auto) 3.8 % (10.0-50.0); Mean Corpuscular Hemoglobin 24.6 pg (28.0-32.0); Mean Corpuscular Hgb Conc. 32.5 g/dL (32.0-36.0); Mean Corpuscular Volume 75.8 fL (80.0-100.0); Monocytes % (auto) 8.2 % (0.0-12.0); Neutrophils # (auto) 17.1 uL; Neutrophils % (auto) 86.7 % (37.0-80.0); Nucleated Red Blood Cells % 0.2 %; Platelet Count (auto) 99 10^3/uL (140-450); Red Blood Cells 4.55 10^6/uL (4.5-5.90); Red Cell Distribution Width 18.4 % (11.8-14.3); White Blood Cell 19.7 10^3/uL (4.4-10.8)
[2018-07-30] MEDS: NYSTATIN (MOUTH-THROAT) 500,000 UNITS/5 ML SUSP MT SCH ×4 (06:18→21:27)
[2018-07-30] MEDS: metroNIDAZOLE 500MG/100ML 100 ML IV SCH ×4 (06:18→23:39)
[2018-07-30 06:28] LABS: Calcium 7.1 mg/dL (8.5-10.1)
[2018-07-30 06:38] LABS: Potassium 2.9 mmol/L (3.5-5.1)
--- NOTE | 2018-07-30 07:00 | NUR ---
SBAR REPORT RECEIVED FROM REAL LEWIS. SEE PX. ASSESS.
--- NOTE | 2018-07-30 07:13 | NUR ---
Dr. Rapp call Informed of HR that is tachycardic but has not reached the 160bpm threshold. He states ok to administer Amiodarone 150mg IV bolus x1 and continue with amiodarone gtt. RN performed TORB and verified orders to be correct. No additional orders received. Will endorsed to day shift RN.
--- NOTE | 2018-07-30 07:14 | NUR ---
Pharmacy call RN called pharmacy and informed of Amiodarone bolus. They state they will mix and send up. Will endorse to day shift RN.
--- NOTE | 2018-07-30 07:28 | NUR ---
Amiodarone bolus Still waiting for pharmacy to send Amiodarone bolus. Endorsed to day shift RN.
--- NOTE | 2018-07-30 07:28 | NUR ---
Report given No changes or incidents to report. Care endorsed to day shift RN.
[2018-07-30] MEDS: SOD CHL 0.45% WITH 20MEQ KCL 1,000 ML IV SCH ×3 (08:00→23:40)
--- NOTE | 2018-07-30 09:07 | NUR ---
DR. CHAUDHARI PAGED DURING ASSESSMENT PATIENTS BILATERAL FEET WERE RED AND NO PALPABLE PULSES- TOOK OFF SCD'S AND DOPPLER PULSES OBTAINED (HOWEVER WEAK). SPOKE TO DR. CHAUDHARI AND HEPARIN DRIP ORDERED AND ARTERIAL STUDY OBTAINED WELL. CONTINUE TO MONITOR.
[2018-07-30] MEDS ORDERED: HEPARIN DRIP/D5W 100UNITS/ML 250 ML IV SCH (09:14)
--- NOTE | 2018-07-30 09:16 | NUR ---
PATIENT SEEN BY DR. OSCAR. IVF CHANGED AND CONTINUE WITH POTASSIUM PROTOCOL ORDER.
--- NOTE | 2018-07-30 09:30 | NUR ---
Paged Dr. French yesterday by placement secretary - Jessenia.
[2018-07-30 10:09] LABS: INR 1.13 (0.9-1.15); Partial Thromboplastin Time 37.5 sec (23.78-33.04)
[2018-07-30 10:18] LABS: Albumin 1.7 g/dL (3.4-5.0); Bilirubin, Direct 2.2 mg/dL (0-0.2)
[2018-07-30 10:21] LABS: Total Protein 4.8 g/dL (6.4-8.2)
[2018-07-30] MEDS: ASPirin 81 mg TAB PO SCH (10:21)
[2018-07-30] MEDS: LINEZOLID 600MG/300ML 300 ML IV SCH ×2 (10:21→21:27)
--- NOTE | 2018-07-30 10:47 | NUR ---
Nutrition Follow-up Notes Wt.: 104.0 kg today Pt's intubated, RN and immediate family member at bedside who provide pt's additional pertinent information when rounded earlier. 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 Pt's usually has good appetite, eat meals regularly, NKFA and not into any special diets captain assistant. Pt's currently sedated with Propofol @ 3.266 ml/hr providing 85 kcal from Fat. Pt's NPO, currently on EN support of Nephro Carb Steady @ 20 ml/hr providing 864 kcal, 39 gms pro and 349 ml free water. Pt with inadequate PN support d/t low initiation rate delivery of concentrated formula aeb current EN infusion meets 47% to 63% of est caloric needs and 27% to 39% of est protein needs. Discussed importance/benefits of EN support while pt remains NPO r/t current medical condition and they verbalized understanding. Noted pt's to hold hold off further hemodialysis treatments because I believe he starting to recover his renal function, per MD's notes. Est. Needs: 1500 kcal to 2000 kcal (15-20 kcal/kgBW), 100 gms to 140 gms pro (1.0-1.4 gms/kgBW). Will continue to monitor pertinent labs and reassess nutrient need prn Labs: Gluc 133 H, Cl 110 H, K 2.9 L, BUN 38 H, Ca 7.1 L; 07/28/18 Phos 7.2 H, Uric acid 16.3 H, Tot reuben 2.5 L, Dir reuben 2.0 H, Trop I 0.256, Tpro 5.5 L,Alb 2.2 L Skin: Greg scale 12, high risk, pt's left buttock pressure ulcer, multiple skin tears, buttocks, arms, elbow per clinical documentation manager. Pls refer to front end architect's notes today for further details. GI: Pt had 5x BM this morning per clinical documentation manager. PES: Increased nutrient needs r/t acute/chronic medical condition aeb intubated, sedated, severe hypoalbuminemia, wound healing, NPO. Altered nutrition related lab values r/t current/chronic medical condition aeb hyperglycemia, hyponatremia, hypokalemia, hyperchloremia, elev. renal labs, Trop I, HbA1c, Uric acid, LFTs, hyperbilirubinemia, hypocalcemia and severe hypoalbuminemia Obesity r/t food intake more than body requirement aeb 155% IBW, BMI 35.6 kg/m2 and increased body adiposity Will continue to monitor NPO status, EN tolerance, skin status, pertinent labs and weight trend. F/u in 3 to 5 days. Rec.: 1.) If pt remains NPO with EN support, no longer on dialysis, consider change EN formula to Jevity 1.2 Richard @ 65 ml/hr goal rate as tolerated while on current rate of Propofol. 2.) If Albumin level continues trending down, consider Prostat 1 pkt BID. 3.) Consider daily Nephrovite and Asc acid 500 mgs BID. 4.) Advance gradually oral diet when medically appropriate 4.) Refer to RD for further nutrition education and weight monitoring upon discharged. 6.) Continue current plan of care.
[2018-07-30] MEDS ORDERED: HEPARIN SODIUM (PORCINE) 5000 UNITS/ML 1ML VIAL SC ONE (10:50)
[2018-07-30 11:42] LABS: INR 1.11 (0.9-1.15); Partial Thromboplastin Time 34.8 sec (23.78-33.04); Prothrombin Time 11.8 sec (9.27-12.13)
--- NOTE | 2018-07-30 13:35 | NUR ---
DR. CHAUDHARI AT BEDSIDE-NEW MEDICATION ORDERS GIVEN. DISCONTINUE PROTONIX DRIP START PROTONIX 40 IV BID GIVEN ONE IV DOSE OF DIGOXIN 0.25MG GIVE A BOLUS OF AMIODARONE IF HR DOESN'T DECREASE WITH DIGOXIN DO NOT GIVE HEPARIN BOLUS -GO BY PROTOCOL W/OUT BOLUS INCREASE AMIODARONE TO 1MG
[2018-07-30] MEDS ORDERED: DIGOXIN (250MCG/ML) 2 ML AMPULE IV ONE (13:45)
[2018-07-30] MEDS: HEPARIN DRIP/D5W 100UNITS/ML 250 ML IV SCH (13:45)
[2018-07-30] MEDS ORDERED: DIGOXIN (250MCG/ML) 2 ML AMPULE ONE (13:52)
[2018-07-30] MEDS ORDERED: AMIODARONE HCL 150 MG in D5W 5% 100 ML IV ONE (14:15)
[2018-07-30] MEDS: VASOPRESSIN 50 UNITS in D5W 5% 247.5 ML IV SCH (14:33)
[2018-07-30] MEDS: MIDAZOLAM DRIP 50 mg/50mL 50 ML IV SCH ×3 (14:35→17:51)
[2018-07-30] MEDS: NOREPINEPHRINE 8 MG/250ML KIT 250 ML IV SCH (14:35)
--- NOTE | 2018-07-30 15:40 | NUR ---
RECTAL TUBE INSERTED AFTER LARGE DIARRHEA STOOL.
[2018-07-30 16:41] LABS: INR 1.12 (0.9-1.15); Partial Thromboplastin Time 34.1 sec (23.78-33.04); Prothrombin Time 11.9 sec (9.27-12.13)
--- NOTE | 2018-07-30 18:30 | NUR ---
DR. FERNANDES AT BEDSIDE- SPOKE WITH DAUGHTER AND MOTHER.
--- NOTE | 2018-07-30 19:08 | NUR ---
SBAR REPORT GIVEN TO DEBBIE.
--- NOTE | 2018-07-30 19:30 | NUR ---
Initial Assessment Patient received laying on bed on mechanical ventilation and sedation with Versed. Patient appears to be uncomfortable with restlessness and overbreathing the ventilator-will start on propofol per MD order. ETT secured with [place], Ambu bag at bedside, oral care and suction rendered. HOB elevated to 30 degrees for VAP/aspiration precautions. RN verified proper placement of OGT via auscultation with air bolus and it is running Nephro with carb steady tube feeding at 20ml/hour. Tube feeding residual is 20ml. Tube feeding remains at goal rate of 20ml/hour. PERRL intact and brisk. Rsubclavian central line intact and patent with no s/s of infiltration or phlebitis noted-dressing CDI. LIJ Cristofer catheter present with dressing CDI. PIV to Rwrist intact and patent with no s/s of infiltration or phlebitis noted. Multiple skin issues noted all with dressings all CDI. Generalized edema noted-all extremities elevated to minimize swelling. Abd soft and non-distended with hypoactive bowel sounds. F/C intact and draining urine to gravity. Penile and scrotal swelling present, scrotum elevated on clean pillowcase to prevent friction/shear and worsening of edema. Neurovascular status intact with palpable distal pulses and brisk capillary refill, skin warm to touch. BLE slightly mottled. Bed in lowest position (on specialty bed), side rails up, bed brakes set, all alarms audible, in direct view of the nurses station. Continue close monitoring.
--- NOTE | 2018-07-30 19:45 | NUR ---
Dr. Rapp pagearlen re: HR. Waiting for call back.
--- NOTE | 2018-07-30 20:00 | NUR ---
Tube feeding Bottle and tubing changed per 24 hour protocol.
[2018-07-30] MEDS ORDERED: METOPROLOL TARTRATE 1MG/1ML-5ML VIAL IV ONE ×2 (20:15→20:30)
--- NOTE | 2018-07-30 20:15 | NUR ---
Dr. Rapp called back Informed of HR 120-130's afib. Also informed of dosage of vasopressor and gtts. He ordered: -administer Lopressor 2.5mg IV x1 now -administer Lopressor 2.5mg IV x1 15 minutes after first dose -If this does not bring down the HR, no further interventions necessary. RN performed TORB and verified orders to be correct. No additional orders received.
--- NOTE | 2018-07-30 20:30 | NUR ---
Lab call Informed of ordered BMP. Informed that RN unable to pull from central line due to being dependent on Levophed. They state they will send wedger machine to draw patient.
--- NOTE | 2018-07-30 21:18 | NUR ---
Called lab [facility] Inquired about when application integration engineer is coming. They state the application integration engineer has the stickers and should be here shortly.
[2018-07-30] MEDS: PANTOPRAZOLE 40 MG/10 ML VIAL IV SCH (21:21)
--- NOTE | 2018-07-30 21:21 | NUR ---
Protonix Unable to give the 2200 Protonix due to no Protonix available in the hospital. Will call pharmacy at 0630 when they open.
[2018-07-30 22:09] LABS: Potassium 3.1 mmol/L (3.5-5.1)
[2018-07-30 22:11] LABS: Calcium 7.4 mg/dL (8.5-10.1)
[2018-07-30 22:14] LABS: BUN/Creatinine Ratio 37.3
[2018-07-30 22:16] LABS: INR 1.14 (0.9-1.15); Partial Thromboplastin Time 34.4 sec (23.78-33.04); Prothrombin Time 12.1 sec (9.27-12.13)
[2018-07-30] MEDS ORDERED: POTASSIUM CHL 20MEQ/100ML 200 ML IV ONE (22:45)
--- NOTE | 2018-07-30 22:45 | NUR ---
Heparin gtt/potassium management Heparin gtt increased by 3ml/hour per protocol. (not administering bolus per Dr. Rapp orders) Potassium being replaced with 40meq per Dr. Beth's standing order.
--- NOTE | 2018-07-30 23:00 | NUR ---
IV removal IV DC'd FROM RIGHT WRIST with clean sterile technique, catheter fully intact. Pressure dressing applied to site. Patient tolerated well. NOTE: D/C'D PER THE 72 HOUR IV PROTOCOL.
--- NOTE | 2018-07-30 23:15 | NUR ---
IV insertion IV access obtained, via clean sterile technique by inserting 20 gauge catheter at rac after 1 attempt(s). IV secured properly. No trauma to site. Patient tolerated well.
[2018-07-30] MEDS: LEVALBUTEROL HCL 1.25 MG/3 ML NEB NEB PRN (23:49)
[2018-07-31] VITALS (102 sets, daily range): BP systolic 75–128; BP diastolic 40–89
--- NOTE | 2018-07-31 | NUR ---
Tube feeding Tube feeding residuals less than 5 ml. Tube feedings remain at 20ml/hour (goal rate). Pt tolerating well and HOB remains elevated with no shifting of OGT.
[2018-07-31] MEDS: POTASSIUM CHL 20MEQ/100ML 100 ML IV SCH ×3 (00:43→14:30)
--- NOTE | 2018-07-31 02:00 | NUR ---
Wound care Buttock wound cleansed and new dressing applied per MD order. JOANN dressing and LUIS dressings wet with serous fluid.wounds cleansed and new dressings applied per MD order. Patient tolerated well.
--- NOTE | 2018-07-31 03:00 | NUR ---
Bed bath/linen change Patient given CHG bath. All linens and gown changes. Skin reassessed for any changes and none noted. Patient tolerated well.
[2018-07-31] MEDS: HEPARIN DRIP/D5W 100UNITS/ML 250 ML IV SCH ×2 (03:08→09:58)
[2018-07-31 03:40] LABS: Eosinophils # (auto) 0.4 uL
[2018-07-31 03:44] LABS: Basophils # (auto) 0 uL; Basophils % (auto) 0.1 % (0.0-2.0); Eosinophils % (auto) 1.8 % (0.0-7.0); Hematocrit 33.1 % (41.0-53.0); Hemoglobin 10.5 g/dL (13.5-17.5); Lymphocytes # (auto) 0.6 uL; Lymphocytes % (auto) 2.7 % (10.0-50.0); Mean Corpuscular Hgb Conc. 31.6 g/dL (32.0-36.0); Mean Corpuscular Volume 76.1 fL (80.0-100.0); Monocytes # (auto) 1.4 uL; Monocytes % (auto) 6.2 % (0.0-12.0); Neutrophils # (auto) 20.1 uL; Neutrophils % (auto) 89.2 % (37.0-80.0); Platelet Count (auto) 110 10^3/uL (140-450); Red Blood Cells 4.36 10^6/uL (4.5-5.90); Red Cell Distribution Width 18.6 % (11.8-14.3); White Blood Cell 22.5 10^3/uL (4.4-10.8)
[2018-07-31] MEDS: SEVELAMER 800 MG TAB PO SCH ×3 (03:51→21:34)
--- NOTE | 2018-07-31 04:00 | NUR ---
Tube feeding Tube feeding residual is 10 ml. Tube feedings remain at 20ml/hour (goal rate). Pt tolerating well and HOB remains elevated with no shifting of OGT.
[2018-07-31 04:09] LABS: INR 1.2 (0.9-1.15); Prothrombin Time 12.7 sec (9.27-12.13)
[2018-07-31 04:28] LABS: Partial Thromboplastin Time 86.1 sec (23.78-33.04)
[2018-07-31] MEDS: PHENYLEPHRINE INJ 20 MG in SODIUM CHL 0.9% 250 ML IV SCH ×3 (04:29→17:46)
--- NOTE | 2018-07-31 04:30 | NUR ---
Heparin gtt Per protocol, Heparin gtt was decreased by 2ml/hour. No s/s of bleeding noted.
[2018-07-31 04:55] LABS: Potassium 3.7 mmol/L (3.5-5.1)
[2018-07-31 04:58] LABS: Albumin 1.7 g/dL (3.4-5.0); Calcium 7.5 mg/dL (8.5-10.1)
[2018-07-31] MEDS: AMIODARONE HCL 900 MG in DEXTROSE 500 ML IV SCH ×2 (05:01→10:05)
[2018-07-31 05:04] LABS: BUN/Creatinine Ratio 34.9; Bilirubin, Total 2.8 mg/dL (0.2-1.0); Total Protein 4.9 g/dL (6.4-8.2)
--- NOTE | 2018-07-31 05:08 | NUR ---
Potassium replacement Potassium to be replaced with 20meq per Dr. Beth's standing order.
[2018-07-31] MEDS ORDERED: POTASSIUM CHL 20MEQ/100ML 100 ML IV ONE ×2 (05:10→05:15)
[2018-07-31] MEDS: metroNIDAZOLE 500MG/100ML 100 ML IV SCH ×4 (05:36→23:40)
[2018-07-31] MEDS: NYSTATIN (MOUTH-THROAT) 500,000 UNITS/5 ML SUSP MT SCH ×4 (05:36→21:33)
--- NOTE | 2018-07-31 06:30 | NUR ---
Pharmacy call Informed that there is no Protonix in pyxis or anywhere in hospital on [facility] find. She states she will bullet the morning dose if she can find some.
--- NOTE | 2018-07-31 06:49 | NUR ---
Pain and nausea management Patient C/O sore throat 09/11 and nausea-requesting medications. No drowsiness or respiratory depression noted. Allergies verified. [place] and Zofran administered per MD order. Patient tolerated well. Addendum: 07/31/18 at 0658 by Minerva Mitchell RN DISREGARD NOTED-WRONG PATIENT
--- NOTE | 2018-07-31 07:00 | NUR ---
Report given No changes or incidents to report. No s/s of distress or pain, all VSS. Care endorsed to day shift RN.
--- NOTE | 2018-07-31 07:00 | NUR ---
SBAR report received from Rosa M.
--- NOTE | 2018-07-31 07:56 | NUR ---
Sent Dr. French a message regarding consult.
--- NOTE | 2018-07-31 08:15 | NUR ---
SPOKE WITH DR. FERNANDES AND UPDATED HIM ON ABG STATUS.
--- NOTE | 2018-07-31 09:27 | NUR ---
GRACENEY FUNCTION MOVING THE RIGHT DIRECTION (NO DIALYSIS) - CHEST XRAY STILL SHOWS PNA AND EDEMA- LASIX ORDERED. CONTINUE ON POTASSIUM PROTOCOL,.
[2018-07-31] MEDS ORDERED: FUROSEMIDE 20 MG/2 ML VIAL IV SCH (09:45)
[2018-07-31] MEDS: DOPamine 1600MCG/ML D5W 250 ML IV SCH (09:50)
[2018-07-31] MEDS: LINEZOLID 600MG/300ML 300 ML IV SCH (09:57)
[2018-07-31] MEDS: ASPirin 81 mg TAB PO SCH (09:57)
[2018-07-31] MEDS: PANTOPRAZOLE 40 MG/10 ML VIAL IV SCH ×2 (09:57→21:34)
[2018-07-31] MEDS: METOPROLOL TARTRATE 25 MG TAB PO SCH ×2 (09:57→21:34)
[2018-07-31] MEDS: NOREPINEPHRINE 8 MG/250ML KIT 250 ML IV SCH ×2 (09:58→23:33)
[2018-07-31 11:06] LABS: INR 1.18 (0.9-1.15); Prothrombin Time 12.5 sec (9.27-12.13)
[2018-07-31 11:17] LABS: Partial Thromboplastin Time 146.6 sec (23.78-33.04)
[2018-07-31] MEDS: PROPOFOL 100 ML IV SCH (11:17)
--- NOTE | 2018-07-31 11:20 | NUR ---
HEPARIN DRIP STOPPED HEPARIN DRIP STOPPED DUE TO PTT BEING 146.60.
[2018-07-31] MEDS ORDERED: MORPHINE SULF INJ 2 MG/ML SYRINGE 1ML IV PRN (11:45)
--- NOTE | 2018-07-31 11:55 | NUR ---
DR. MONAHAN AT BEDSIDE- WENT OVER PLAN FOR PATIENT WITH DAUGHTER. WE NEED NEURO CONSULT FIRST. TRY TO GET OFF SEDATION.
[2018-07-31] MEDS: CEFTRIAXONE SODIUM 2 GM in D5W 5% 50 ML IV SCH (12:00)
--- NOTE | 2018-07-31 12:15 | NUR ---
DR. CHAUDHARI AT BEDSIDE- BOTH DR. MONAHAN AND DR. CHAUDHARI SPOKE WITH DAUGHTER. CT HEAD AND CONSULTED DR. GEORGE.
--- NOTE | 2018-07-31 12:49 | NUR ---
MAIDA CORTEZ CONSULTED FOR NEURO AND LEFT MESSAGE WITH OFFICE.
[2018-07-31] MEDS: MIDAZOLAM DRIP 50 mg/50mL 50 ML IV SCH ×2 (14:11→23:38)
--- NOTE | 2018-07-31 14:44 | NUR ---
CT scanner down unable to get CT head today.
--- NOTE | 2018-07-31 15:10 | NUR ---
DR. GEORGE AT BEDSIDE- SPOKE WITH . DUE TO CT SCANNER DOWN WILL WAIT TILL TOMORROW TO GET ADEQUATE ASSESSMENT.
[2018-07-31 15:36] LABS: Hepatitis C Antibody Negative (Negative)
[2018-07-31 15:37] LABS: Hepatitis A Ab IgM Negative; Hepatitis B Core IgM Negative
--- NOTE | 2018-07-31 15:50 | NUR ---
I spoke with [employer]ICE Insurance Writer Rayna and gave her verbal report on the plan of care for this patient.
[2018-07-31] MEDS: MORPHINE SULF INJ 2 MG/ML SYRINGE 1ML IV PRN (16:38)
[2018-07-31] MEDS: VASOPRESSIN 50 UNITS in D5W 5% 247.5 ML IV SCH (17:15)
[2018-07-31] MEDS: FUROSEMIDE 20 MG/2 ML VIAL IV SCH (17:32)
[2018-07-31 17:38] LABS: Potassium 3.9 mmol/L (3.5-5.1)
[2018-07-31 17:42] LABS: Calcium 7.8 mg/dL (8.5-10.1)
[2018-07-31 17:45] LABS: BUN/Creatinine Ratio 32.9
[2018-07-31 18:05] LABS: INR 1.16 (0.9-1.15); Prothrombin Time 12.3 sec (9.27-12.13)
--- NOTE | 2018-07-31 18:55 | NUR ---
SBAR REPORT GIVEN TO KACIE.
--- NOTE | 2018-07-31 19:15 | NUR ---
OPEN ASSUMED CARE, FULL ASSESSMENT DONE; SEE INTERVENTIONS. VERSED, LEVOPHED, AMIO, AND HEPARIN INFUSING PER IV SPREADSHEET. PT DOES RESPOND TO VOICE AND TURNS HEAD TOWARDS VOICE BUT DOES NOT FOLLOW COMMANDS, HR INCREASES TO 150s WHEN FAMILY PRESENT. ORAL TEMP 99.7, COOLING MEASURES IMPLEMENTED. OGT POSITION VERIFIED VIA AUSCULTATION, NEPRO CARB STEADY RUNNING AT 25 ML/HR WITH APPROX. 10 ML RESIDUALS NOTED. ORAL CARE AND REPOSITIONING DONE.
--- NOTE | 2018-07-31 20:46 | NUR ---
FAMILY PT'S AND DAUGHTER AT BEDSIDE, ALL QUESTIONS/CONCERNS ADDRESSED.
--- NOTE | 2018-07-31 21:00 | NUR ---
SEDATION PT. BUCKING VENTILATOR, RR HIGH 30s; SUCTIONING PROVIDED WITH SMALL AMOUNT CREAMY CASTILLO SECRETIONS OBTAINED. HR ST 140s SUSTAINED, INCREASED SEDATION FOR PT COMFORT. SEE IV SPREADSHEET.
[2018-07-31] MEDS ORDERED: Nepro With Carb Steady 1 Liter Bottle GT SCH (22:00)
[2018-08-01] VITALS (99 sets, daily range): BP systolic 82–132; BP diastolic 36–92
--- NOTE | 2018-08-01 00:24 | NUR ---
TEMP ORAL TEMP 100.8, ICE PACKS APPLIED TO MARIN GROIN AND AXILLAE.
[2018-08-01] MEDS: DOPamine 1600MCG/ML D5W 250 ML IV SCH ×2 (00:41→13:51)
--- NOTE | 2018-08-01 01:00 | NUR ---
HEPARIN GTT PTT: 61.6; NO CHANGE PER HEPARIN GTT PROTOCOL. RATE CONTINUES AT 1650 ML/HR.
[2018-08-01 01:16] LABS: Potassium 3.5 mmol/L (3.5-5.1)
[2018-08-01 01:19] LABS: INR 1.28 (0.9-1.15); Partial Thromboplastin Time 61.6 sec (23.78-33.04); Prothrombin Time 13.5 sec (9.27-12.13)
[2018-08-01 01:23] LABS: BUN/Creatinine Ratio 34.6; Calcium 7.7 mg/dL (8.5-10.1)
--- NOTE | 2018-08-01 02:52 | NUR ---
CARES FULL BATH AND LINEN CHANGE DONE, FACE SHAVED. NO NEW SKIN ISSUES ASSESSED. PT TOLERATED ACTIVITY WELL ALTHOUGH HR CONTINUES TO BE ELEVATED 120-130s (IN AND OUT OF ST AND AFIB/FLUTTER). DIPRIVAN STARTED IN AN ATTEMPT TO WEAN VERSED, SEE IV SPREADSHEET.
--- NOTE | 2018-08-01 04:40 | NUR ---
CARDIAC PT. CONVERTED TO SR IN THE 70s AT THIS TIME WITH FREQUENT PACs.
[2018-08-01 05:12] LABS: Eosinophils # (auto) 0.6 uL; Monocytes # (auto) 1.2 uL; Neutrophils % (auto) 85.9 % (37.0-80.0)
[2018-08-01 05:14] LABS: Basophils # (auto) 0 uL; Basophils % (auto) 0.2 % (0.0-2.0); Eosinophils % (auto) 3.1 % (0.0-7.0); Hematocrit 31.3 % (41.0-53.0); Lymphocytes # (auto) 0.9 uL; Lymphocytes % (auto) 4.6 % (10.0-50.0); Mean Corpuscular Hemoglobin 24.2 pg (28.0-32.0); Mean Corpuscular Volume 75.8 fL (80.0-100.0); Monocytes % (auto) 6.2 % (0.0-12.0); Neutrophils # (auto) 16.9 uL; Platelet Count (auto) 121 10^3/uL (140-450); Red Blood Cells 4.13 10^6/uL (4.5-5.90); Red Cell Distribution Width 18.7 % (11.8-14.3); White Blood Cell 19.7 10^3/uL (4.4-10.8)
[2018-08-01] MEDS: PHENYLEPHRINE INJ 20 MG in SODIUM CHL 0.9% 250 ML IV SCH ×3 (05:29→22:09)
--- NOTE | 2018-08-01 05:30 | NUR ---
BEDSIDE MONITOR MALFUNCTIONING FROM [id number], BLOOD PRESSURES NOT TAKEN AT THIS TIME. BLOOD PRESSURE 104/60 AT 0515, LEVOPHED CONTINUES TO INFUSE. MONITOR NOW WORKING.
[2018-08-01 05:32] LABS: Albumin 1.6 g/dL (3.4-5.0); Calcium 7.6 mg/dL (8.5-10.1); Potassium 3.3 mmol/L (3.5-5.1)
[2018-08-01] MEDS: NYSTATIN (MOUTH-THROAT) 500,000 UNITS/5 ML SUSP MT SCH ×4 (05:33→22:18)
[2018-08-01] MEDS: SEVELAMER 800 MG TAB PO SCH ×3 (05:33→21:59)
[2018-08-01 05:35] LABS: BUN/Creatinine Ratio 34.6; Bilirubin, Total 2.5 mg/dL (0.2-1.0)
[2018-08-01] MEDS: FUROSEMIDE 20 MG/2 ML VIAL IV SCH ×2 (05:47→18:00)
[2018-08-01] MEDS: metroNIDAZOLE 500MG/100ML 100 ML IV SCH ×3 (05:47→18:00)
[2018-08-01] MEDS: HEPARIN DRIP/D5W 100UNITS/ML 250 ML IV SCH ×2 (05:48→19:33)
--- NOTE | 2018-08-01 06:00 | NUR ---
PTT 73.2; NO CHANGE PER HEPARIN GTT PROTOCOL RATE CONTINUES AT 1650 UNITS/HR (16.5 ML/HR).
[2018-08-01 06:08] LABS: INR 1.2 (0.9-1.15); Prothrombin Time 12.7 sec (9.27-12.13)
[2018-08-01 06:09] LABS: Partial Thromboplastin Time 73.2 sec (23.78-33.04)
--- NOTE | 2018-08-01 06:28 | NUR ---
POTASSIUM 3.3; WILL REPLACE PER MD COMMUNICATION ORDER WITH 40 MEQ KCL RIDER OVER 4 HOURS. SEE EMAR.
[2018-08-01] MEDS: POTASSIUM CHL 20MEQ/100ML 100 ML IV SCH ×2 (06:51→09:22)
--- NOTE | 2018-08-01 07:27 | NUR ---
REPORT CARE ENDORSED TO REAL VILLAVICENCIO.
--- NOTE | 2018-08-01 07:35 | NUR ---
OPENING SHIFT NOTE Report received from Denise NOBLE, care assumed. Patient is intubated and under sedation of Versed and Diprivan. Patient tolerating vent at this time. No distress noted. Pulses palpable radially bilaterally. Lungs coarse anteriorly. Oxygen sat 98%. Patient on specialty air mattress, heels and arms off loaded on pillows. Flexi-seal and Grady catheter patent. Bed locked in lowest position, call light within reach. Continue to monitor.
[2018-08-01] MEDS: MIDAZOLAM DRIP 50 mg/50mL 50 ML IV SCH ×2 (08:00→16:32)
--- NOTE | 2018-08-01 08:00 | NUR ---
TF Tube feeding residual checked, 10 cc residual. Continue feedings at same rate of 20 cc/hr.
--- NOTE | 2018-08-01 08:10 | NUR ---
VISITOR Patient daughter at bedside. She has been updated on plan of care for today.
--- NOTE | 2018-08-01 08:28 | NUR ---
RADIOLOGY Patient being transported to CT via bed, portable monitor, and vent with Emilee RN, and two RT. Vitals stable at time of transport, no distress noted.
--- NOTE | 2018-08-01 08:58 | NUR ---
Respiratory note: PT TRANSPORTED TO CT FOR READ OF HEAD. PT TOLERATED TRANSPORT WELL ON TRANSPORT VENT. AMBU BAG WITH PATIENT. VITALS STABLE. PT BACK IN ROOM. RN AT BEDSIDE.
[2018-08-01] MEDS: METOPROLOL TARTRATE 25 MG TAB PO SCH ×2 (09:22→22:03)
[2018-08-01] MEDS: PANTOPRAZOLE 40 MG/10 ML VIAL IV SCH (09:22)
[2018-08-01] MEDS: NOREPINEPHRINE 8 MG/250ML KIT 250 ML IV SCH ×2 (09:23→18:08)
--- NOTE | 2018-08-01 09:30 | NUR ---
LINEN/MICHAEL CARE Patient returned from CT. Vitals stable, no distress noted a this time. Complete linen change performed, michael area cleansed and assessed. Patient repositioned on side. Oral care performed. Pt tolerated activity well. Heels and arms off loaded on pillows. Bed locked in lowest position. Will continue to monitor.
--- NOTE | 2018-08-01 09:30 | NUR ---
NEPHROLOGY ROUNDS at bedside assessing patient and speaking with daughter regarding plan of care. All questions and concerns addressed.
[2018-08-01] MEDS: SPIRONOLACTONE 25 MG TAB PO SCH ×2 (10:00→11:36)
[2018-08-01] MEDS: AMIODARONE HCL 900 MG in DEXTROSE 500 ML IV SCH ×2 (11:03→17:59)
--- NOTE | 2018-08-01 11:13 | NUR ---
Nutrition Follow-up Notes Wt.: 106.7 KG Pt's intubated, sedated with propofol @ 6.532 ml/hr providing 172 kcals from fats. Pt's NPO, currently on EN support of Nephro Carb Steady @ 30 ml/hr providing 1296 kcal, 58 gms pro. Pt with inadequate PN support d/t mod initiation rate delivery of concentrated formula aeb current EN infusion meets 73-97% of est caloric needs and 41-58% of est protein needs. per records pt with ABBEY Est. Needs: 1500 kcal to 2000 kcal (15-20 kcal/kgBW), 100 gms to 140 gms pro (1.0-1.4 gms/kgBW). Will continue to monitor pertinent labs and reassess nutrient need prn Labs: GLU 126 H, MARIN 2.5 H, ALB 1.6 L, BUN 28 H CA 7.6 L Skin: Greg scale 11, high risk, pt's left buttock pressure ulcer, multiple skin tears, buttocks, arms, elbow per microbiology supervisor. Pls refer to tube rebuilder's notes for further details. GI: Pt had 100 ml this morning diarr per microbiology supervisor. PES: Increased nutrient needs r/t acute/chronic medical condition aeb intubated, sedated, severe hypoalbuminemia, wound healing, NPO. Altered nutrition related lab values r/t current/chronic medical condition aeb hyperglycemia, hyponatremia, hypokalemia, hyperchloremia, elev. renal labs, Trop I, HbA1c, Uric acid, LFTs, hyperbilirubinemia, hypocalcemia and severe hypoalbuminemia Obesity r/t food intake more than body requirement aeb 155% IBW, BMI 35.6 kg/m2 and increased body adiposity Will continue to monitor NPO status, EN tolerance, skin status, pertinent labs and weight trend. F/u in 3 to 5 days. Rec.: 1.) If pt remains NPO with EN support, no longer on dialysis, consider change EN formula to Jevity 1.2 Richard @ 65 ml/hr goal rate as tolerated while on current rate of Propofol. 2.) If Albumin level continues trending down, consider Prostat 1 pkt BID. 3.) Consider daily Nephrovite and Asc acid 500 mgs BID. 4.) Advance gradually oral diet when medically appropriate 4.) Refer to RD for further nutrition education and weight monitoring upon discharged. 6.) Continue current plan of care.
[2018-08-01] MEDS: PROPOFOL 100 ML IV SCH ×2 (11:36→20:37)
[2018-08-01 12:02] LABS: INR 1.23 (0.9-1.15)
[2018-08-01 12:04] LABS: Partial Thromboplastin Time 88.8 sec (23.78-33.04)
--- NOTE | 2018-08-01 12:09 | NUR ---
HEPARIN GTT PTT 88.8, per protocol must decrease rate by 2 ml/hr, new rate 14.5ml/hr- 1450 units.
[2018-08-01] MEDS: CEFTRIAXONE SODIUM 2 GM in D5W 5% 50 ML IV SCH (12:48)
--- NOTE | 2018-08-01 13:00 | NUR ---
FAMILY Patient Elsie at bedside.
[2018-08-01] MEDS: VASOPRESSIN 50 UNITS in D5W 5% 247.5 ML IV SCH (13:51)
--- NOTE | 2018-08-01 15:20 | NUR ---
MD ROUNDS at bedside assessing patient and speaking with and daughter. MD wants to increase tube feeding rate, D/C Aldactone. Other orders received.
[2018-08-01] MEDS ORDERED: Nepro With Carb Steady 1 Liter Bottle GT SCH (15:30)
--- NOTE | 2018-08-01 15:30 | NUR ---
CODE STATUS Patient signed DNR code status form. Family does not wish to add on any further medications at this time. They want to continue with current treatment. Family wants to speak with social group worker tomorrow regarding hospice and placement if family decides to terminal wean this weekend. aware.
--- NOTE | 2018-08-01 17:30 | NUR ---
WOUND CARE Right and left arm skin tears cleansed and redressed with clean Optifoam. Buttock wound cleansed with new Optifoam placed. Patient repositioned on side. Patient tolerated activity fair, vitals stable. No distress noted. Continue to monitor.
--- NOTE | 2018-08-01 18:18 | NUR ---
PULMONOLOGY ROUNDS at bedside assessing patient and speaking with patient daughter.
[2018-08-01 18:24] LABS: INR 1.2 (0.9-1.15); Partial Thromboplastin Time 57.8 sec (23.78-33.04); Prothrombin Time 12.7 sec (9.27-12.13)
--- NOTE | 2018-08-01 19:35 | NUR ---
REPORT Report given to Paul NOBLE, care endorsed.
--- NOTE | 2018-08-01 20:13 | NUR ---
SINUS RHYTHM 80'S PATIENT'S EKG WAS ST IN 140'S NOW CONVERTED TO SR IN 80'S.
[2018-08-01] MEDS: FAMOTIDINE (10MG/ML) 2ML VL IV SCH (22:21)
[2018-08-02] VITALS (104 sets, daily range): BP systolic 88–129; BP diastolic 43–83
[2018-08-02 01:16] LABS: INR 1.21 (0.9-1.15); Partial Thromboplastin Time 48.3 sec (23.78-33.04); Prothrombin Time 12.8 sec (9.27-12.13)
[2018-08-02] MEDS: NOREPINEPHRINE 8 MG/250ML KIT 250 ML IV SCH ×2 (03:01→20:41)
[2018-08-02] MEDS: PROPOFOL 100 ML IV SCH ×3 (03:01→18:07)
[2018-08-02] MEDS: MIDAZOLAM DRIP 50 mg/50mL 50 ML IV SCH ×3 (04:36→23:33)
[2018-08-02] MEDS: SEVELAMER 800 MG TAB PO SCH ×3 (05:45→21:33)
[2018-08-02] MEDS ORDERED: FUROSEMIDE 20 MG/2 ML VIAL ONE (05:48)
[2018-08-02] MEDS ORDERED: FUROSEMIDE 40 MG/4 ML VIAL ONE (05:48)
[2018-08-02] MEDS: metroNIDAZOLE 500MG/100ML 100 ML IV SCH ×5 (05:51→23:32)
[2018-08-02] MEDS: FUROSEMIDE 20 MG/2 ML VIAL IV SCH (05:51)
[2018-08-02] MEDS: METOPROLOL TARTRATE 25 MG TAB PO SCH ×3 (05:52→21:33)
[2018-08-02] MEDS: NYSTATIN (MOUTH-THROAT) 500,000 UNITS/5 ML SUSP MT SCH ×4 (05:52→21:33)
[2018-08-02] MEDS: DOPamine 1600MCG/ML D5W 250 ML IV SCH ×2 (06:23→21:14)
[2018-08-02] MEDS: PHENYLEPHRINE INJ 20 MG in SODIUM CHL 0.9% 250 ML IV SCH ×3 (06:29→23:09)
[2018-08-02 06:55] LABS: Basophils # (auto) 0.1 uL; Eosinophils # (auto) 0.5 uL; Hemoglobin 9.7 g/dL (13.5-17.5)
[2018-08-02 06:59] LABS: Basophils % (auto) 0.7 % (0.0-2.0); Eosinophils % (auto) 2.4 % (0.0-7.0); Lymphocytes # (auto) 0.8 uL; Lymphocytes % (auto) 4.2 % (10.0-50.0); Mean Corpuscular Hemoglobin 24.2 pg (28.0-32.0); Mean Corpuscular Hgb Conc. 32.1 g/dL (32.0-36.0); Mean Corpuscular Volume 75.3 fL (80.0-100.0); Monocytes # (auto) 1.3 uL; Monocytes % (auto) 6.6 % (0.0-12.0); Neutrophils # (auto) 17.1 uL; Neutrophils % (auto) 86.1 % (37.0-80.0); Nucleated Red Blood Cells % 0.2 %; Platelet Count (auto) 127 10^3/uL (140-450); Red Blood Cells 3.99 10^6/uL (4.5-5.90); Red Cell Distribution Width 19.1 % (11.8-14.3); White Blood Cell 19.9 10^3/uL (4.4-10.8)
[2018-08-02 07:03] LABS: Calcium 7.8 mg/dL (8.5-10.1); Potassium 3.2 mmol/L (3.5-5.1)
[2018-08-02 07:07] LABS: INR 1.2 (0.9-1.15); Partial Thromboplastin Time 55.3 sec (23.78-33.04); Prothrombin Time 12.7 sec (9.27-12.13)
[2018-08-02 07:09] LABS: Albumin 1.5 g/dL (3.4-5.0); BUN/Creatinine Ratio 36.6; Bilirubin, Total 1.3 mg/dL (0.2-1.0); Total Protein 5.1 g/dL (6.4-8.2)
[2018-08-02] MEDS: HEPARIN DRIP/D5W 100UNITS/ML 250 ML IV SCH ×2 (08:40→22:55)
[2018-08-02] MEDS ORDERED: FUROSEMIDE INJECTION 250 MG in D5W 5% 225 ML IV SCH (09:15)
[2018-08-02] MEDS: POTASSIUM CHL 20MEQ/100ML 100 ML IV SCH ×2 (09:26→11:10)
[2018-08-02] MEDS ORDERED: POTASSIUM CHL 20 Meq TABLET PO SCH (10:00)
[2018-08-02] MEDS: FAMOTIDINE (10MG/ML) 2ML VL IV SCH ×2 (10:03→21:33)
[2018-08-02] MEDS: CEFTRIAXONE SODIUM 2 GM in D5W 5% 50 ML IV SCH (12:00)
[2018-08-02] MEDS: AMIODARONE HCL 900 MG in DEXTROSE 500 ML IV SCH (12:25)
[2018-08-02 12:34] LABS: INR 1.25 (0.9-1.15); Partial Thromboplastin Time 57.2 sec (23.78-33.04); Prothrombin Time 13.2 sec (9.27-12.13)
[2018-08-02 12:44] LABS: Calcium 7.6 mg/dL (8.5-10.1); Potassium 3.5 mmol/L (3.5-5.1)
[2018-08-02 12:47] LABS: BUN/Creatinine Ratio 35.6
--- NOTE | 2018-08-02 13:46 | NUR ---
Resumed care at 0700. Orders reviewed and ongoing assessments being done. Being treated for multiple problems and remains intubated and sedated. Not able to open eyes or follow any commands at this time. Remains on Levophed and Amiodarone infusions for hemodynamic stability, infusing via TLC. Has remained in NSR with no episodes of AFIB RVR. Heparin gtt continues at 1650 units/hour, noon draw within parameters and no changes required. Continue to monitor for signs and symptoms of bleeding. Jayesh Villalpando has been at bedside since early am.
--- NOTE | 2018-08-02 14:26 | NUR ---
MD VISIT: DR. MONAHAN IN AT BEDSIDE. FULLY UPDATED ON ALL PATIENT STATUS AND MD DID SPEAK TO FAMILY IN DETAIL AT BEDSIDE ABOUT FULL STATUS AT TIME. ALL QUESTIONS AND CONCERNS ADDRESSED. NO NEW ORDERS RECEIVED. COVERING FOR PRIMARY RN AT TIME AND WILL INFORM RN ON RETURN.
[2018-08-02] MEDS: VASOPRESSIN 50 UNITS in D5W 5% 247.5 ML IV SCH (17:15)
[2018-08-02] MEDS: SPIRONOLACTONE 25 MG TAB PO SCH (18:06)
[2018-08-02 18:28] LABS: BUN/Creatinine Ratio 31.3; Calcium 7.7 mg/dL (8.5-10.1); Potassium 3.4 mmol/L (3.5-5.1)
[2018-08-02 18:38] LABS: INR 1.23 (0.9-1.15)
--- NOTE | 2018-08-02 19:20 | NUR ---
Dr. Cheo Foster was in to round at 1646. He spoke with Elsie and daughter Irasema at length regarding condition and plan of care. Family has come to a consensus to terminally wean in the am. Wishes respected and ordered obtained. Will terminal wean tomorrow once family is ready in the am and continue with comfort measures as appropriate.
[2018-08-02] MEDS ORDERED: MORPHINE SULF INJ 2 MG/ML SYRINGE 1ML IV PRN (19:30)
[2018-08-02] MEDS ORDERED: LORazepam 2MG/ML-1ML VIAL IV PRN (19:30)
--- NOTE | 2018-08-02 20:00 | NUR ---
Family at bedside PATIENT'S AND DAUGHTER AT BEDSIDE. UPDATED ON PT'S STATUS. POC EXPLAINED. THEY VERBALIZED UNDERSTANDING.
--- NOTE | 2018-08-02 21:00 | NUR ---
SEDATION VACATION SEDATION VACATION IS NOT DONE. FAMILY WANTS PATIENT TO BE COMFORTABLE. PATIENT IS GOING TO BE TERMINAL WEAN IN AM AND THEN COMFORT MEASURES. Addendum: 08/03/18 at 0728 by Howard Luna RN PATIENT IS DEEPLY SEDATED.
[2018-08-02] MEDS ORDERED: POTASSIUM EFFERVESENT TAB 25 MEQ PO SCH (22:00)
[2018-08-03] VITALS (48 sets, daily range): BP systolic 84–121; BP diastolic 42–74
[2018-08-03 01:49] LABS: BUN/Creatinine Ratio 32.9; Calcium 7.5 mg/dL (8.5-10.1); Potassium 3.2 mmol/L (3.5-5.1)
[2018-08-03] MEDS ORDERED: POTASSIUM CHL 20MEQ/100ML 200 ML IV ONE (02:29)
[2018-08-03] MEDS: MORPHINE SULF INJ 2 MG/ML SYRINGE 1ML IV PRN (02:32)
[2018-08-03] MEDS: PROPOFOL 100 ML IV SCH (03:17)
[2018-08-03] MEDS: POTASSIUM CHL 20MEQ/100ML 100 ML IV SCH ×2 (04:03→04:30)
--- NOTE | 2018-08-03 05:00 | NUR ---
Patient bathe/linen change Patient given complete chlorhexidine bath. Skin integrity assessed for any changes. Linens changed. Patient repositioned for comfort.
[2018-08-03] MEDS: SPIRONOLACTONE 25 MG TAB PO SCH (05:41)
[2018-08-03] MEDS: METOPROLOL TARTRATE 25 MG TAB PO SCH (05:42)
[2018-08-03] MEDS: NYSTATIN (MOUTH-THROAT) 500,000 UNITS/5 ML SUSP MT SCH (05:42)
[2018-08-03] MEDS: metroNIDAZOLE 500MG/100ML 100 ML IV SCH (05:42)
[2018-08-03] MEDS: SEVELAMER 800 MG TAB PO SCH (05:43)
[2018-08-03 07:02] LABS: Basophils # (auto) 0.1 uL; Eosinophils # (auto) 0.3 uL; Eosinophils % (auto) 1.8 % (0.0-7.0); Hemoglobin 9.6 g/dL (13.5-17.5)
[2018-08-03 07:05] LABS: Basophils % (auto) 0.8 % (0.0-2.0); Hematocrit 29.8 % (41.0-53.0); Lymphocytes # (auto) 1.2 uL; Lymphocytes % (auto) 6.6 % (10.0-50.0); Mean Corpuscular Hgb Conc. 32.3 g/dL (32.0-36.0); Mean Corpuscular Volume 74.1 fL (80.0-100.0); Monocytes # (auto) 1.5 uL; Monocytes % (auto) 8.5 % (0.0-12.0); Neutrophils # (auto) 14.8 uL; Neutrophils % (auto) 82.3 % (37.0-80.0); Platelet Count (auto) 137 10^3/uL (140-450); Red Blood Cells 4.02 10^6/uL (4.5-5.90); Red Cell Distribution Width 19.2 % (11.8-14.3)
[2018-08-03 07:08] LABS: BUN/Creatinine Ratio 29.2; Calcium 7.3 mg/dL (8.5-10.1); Potassium 3.4 mmol/L (3.5-5.1)
[2018-08-03 07:09] LABS: INR 1.2 (0.9-1.15); Partial Thromboplastin Time 47.6 sec (23.78-33.04); Prothrombin Time 12.7 sec (9.27-12.13)
[2018-08-03] MEDS: NOREPINEPHRINE 8 MG/250ML KIT 250 ML IV SCH (07:21)
--- NOTE | 2018-08-03 09:24 | NUR ---
Resumed care of patient at 0700. Orders reviewed and ongoing assessments being done. Being treated for multiple problems and remains intubated and sedated. Elsie, daughter Irasema and extended family have arrived. Plan for today is to terminal wean, from ventilator and stop all medications. Comfort measures will be initiated as appropriate. Allowing family to gather and emotional support provided.
[2018-08-03] MEDS ORDERED: SPIRONOLACTONE 25 MG TAB PO SCH (10:00)
--- NOTE | 2018-08-03 10:14 | NUR ---
Pastor Wilkinson at bedside with family, provided prayer and emotional support. Comfort cart made available for family.
--- NOTE | 2018-08-03 10:30 | NUR ---
Respiratory note: TERMINAL EXTUBATED PT, RN AND FAMILY AT BEDSIDE.
--- NOTE | 2018-08-03 11:16 | NUR ---
PRONOUNCEMENT OF CALLED TO PRONOUNCE PT. PT ADMITTED WITH STEMI.CPR. MADE DNR 08/01; TERMINALLY WEANED TODAY AT 1030. FOUND PULSELESS AND APNEIC. ASYSTOLE IN 2LEADS. NO CORNEAL, GAG OR DTR"S. NO PULSE OR RESP AFTER ONE FULL MINUTE OF AUSCULTATION. TOD [id number]
--- NOTE | 2018-08-03 12:46 | NUR ---
Family spent time and all medications discontinued and extubated at 1030. Prior to extubation a dose of 2 mg of Morphine given IVP. Went into asystole at 1053 am and was pronounced at 1116 am by Steffany Bennett RN, Director New Product. Notified Dr. Cheo Foster at 1126 am. Mortuary confirmed, will be released to [facility]. All family members have left the facility and Pati Mejia signed form for release of remains. No personal belongings at bedside. Contacted Raman and spoke with Yenny from 1143 to 1204 and all information given. Call out to [facility] Coroner at 1207, awaiting call back.
--- NOTE | 2018-08-03 13:19 | NUR ---
[facility] RECEIVED A PHONE CALL FROM [facility]. INQUIRING IF FAMILY STILL AT THE BEDSIDE AND INFORMED HER THAT THEY HAVE LEFT THE HOSPITAL. PER PRIYA, OKAY TO RELEASE THE BODY TO THE MORTUARY.
--- NOTE | 2018-08-03 16:18 | NUR ---
Received call back from [employer] Boat Captain Kory Tang. All information given and body released #[id number]. Post mortem care to follow.
--- NOTE | 2018-08-03 17:16 | NUR ---
Post mortem care done. Notified [facility] regarding garbage pick up worker at 1653. Awaiting garbage pick up worker.
--- NOTE | 2018-08-03 19:22 | NUR ---
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 Escorted by security.01
== END 2018-08-03 11:16 | disposition expired | DRG 870 ==
LOC: EDBD 17:26 → ER 17:32 → TELE 21:37 → ICU WEST 23:23
PROVIDERS: ADMIT Nurse Practitioner; ATTEND Hospitalist
PROC: 5A1955Z Respiratory Ventilation, Greater than 96 Consecutive Hours (ICD-10-PCS; principal; 2018-07-26)
PROC: 0BH17EZ Insertion of Endotracheal Airway into Trachea, Via Natural or Artificial Opening (ICD-10-PCS; 2018-07-26)
PROC: 5A12012 Performance of Cardiac Output, Single, Manual (ICD-10-PCS; 2018-07-26)
PROC: 02HV33Z Insertion of Infusion Device into Superior Vena Cava, Percutaneous Approach (ICD-10-PCS; 2018-07-26)
PROC: 02HV33Z Insertion of Infusion Device into Superior Vena Cava, Percutaneous Approach (ICD-10-PCS; 2018-07-27)
PROC: 5A1D70Z Performance of Urinary Filtration, Intermittent, Less than 6 Hours Per Day (ICD-10-PCS; 2018-07-27)
PROC: 5A1D70Z Performance of Urinary Filtration, Intermittent, Less than 6 Hours Per Day (ICD-10-PCS; 2018-07-29)
DX: A41.9 Sepsis, unspecified organism (principal); J96.02 Acute respiratory failure with hypercapnia; N17.0 Acute kidney failure with tubular necrosis; R65.21 Severe sepsis with septic shock; J69.0 Pneumonitis due to inhalation of food and vomit; G93.41 Metabolic encephalopathy; J96.01 Acute respiratory failure with hypoxia; D68.9 Coagulation defect, unspecified; E44.0 Moderate protein-calorie malnutrition; E87.2 Acidosis; E87.1 Hypo-osmolality and hyponatremia; I46.9 Cardiac arrest, cause unspecified; E78.5 Hyperlipidemia, unspecified; E83.51 Hypocalcemia; E87.6 Hypokalemia; I25.10 Atherosclerotic heart disease of native coronary artery without angina pectoris; M06.9 Rheumatoid arthritis, unspecified; D69.6 Thrombocytopenia, unspecified; E88.09 Other disorders of plasma-protein metabolism, not elsewhere classified; Z16.11 Resistance to penicillins; B96.1 Klebsiella pneumoniae [K. pneumoniae] as the cause of diseases classified elsewhere; I48.91 Unspecified atrial fibrillation; J44.9 Chronic obstructive pulmonary disease, unspecified; I11.0 Hypertensive heart disease with heart failure; I73.9 Peripheral vascular disease, unspecified; I07.1 Rheumatic tricuspid insufficiency; I27.20 Pulmonary hypertension, unspecified; I50.9 Heart failure, unspecified; R19.7 Diarrhea, unspecified; E66.01 Morbid (severe) obesity due to excess calories; Z68.37 Body mass index [BMI] 37.0-37.9, adult; Z79.899 Other long term (current) drug therapy; Z66 Do not resuscitate; Z71.3 Dietary counseling and surveillance; Z51.5 Encounter for palliative care; Z99.2 Dependence on renal dialysis; Z88.2 Allergy status to sulfonamides; Z79.52 Long term (current) use of systemic steroids
CPT/HCPCS: 31500; 36415; 36600; 70450; 71045; 80048; 80053; 80074; 80076; 80320; 81001; 82270; 82570; 82728; 82805; 83540; 83550; 83605; 83735; 83880; 84100; 84132; 84300; 84443; 84484; 84550; 85007; 85025; 85027; 85048; 85379; 85610; 85730; 87040; 87045; 87070; 87077; 87081; 87086; 87186; 87205; 87493; 87899; 90935; 92950; 93005; 93306; 93926; 93971; 94002; 94003; 94640; 96361; 96365; 96367; 99291; A6257; C9113; G0378; J0610; J0696; J1642; J2185; J2250; J2543; J2704; J3480; J3490; J7060